=== PATIENT | female | born 1990 | race African-American/Black ===

== ENCOUNTER 2025-04-07 04:43 | Inpatient (IN) | payer BC, OTHER ==
[~2025-04-07] VITALS: Ht 154.9 cm; Wt 97.0 kg
[2025-04-07 05:41] VITALS: PULSE 79; RESP 17; O2SAT 96
--- NOTE | 2025-04-07 06:23 | ED.PDOC ---
HPI (NEURO) HPI Comments 34 y/o F, is BIBA for CC of right-sided weakness. EMS reports, patient is coming from home where she c/o mid/upper back pain with associated numbness following stretching at approximately (0100) this morning (04/07/25). Patient reports, SHx of x4 lumbar disc replacements. Following trauma, patient endorses right sided body weakness and inability to move her right lower leg. At this time patient's speech is clear and facial symmetry is bilaterally equal. Patient denies any trauma, injury, fall, or changes in speech. No other ysmptoms or modifying factors are present at this time. Chief Complaint: Right Sided Weakness Time Seen by MD: 06:23 Reviewed Notes: Nurses Notes, Medications, Allergies Information Source: Patient Mode of Arrival: EMS Severity: Moderate Headache Severity: Moderate, None Timing: Hours Duration: Since onset Prehospital treatment: None Onset: With light exertion Circumstances: Spontaneous Symptoms: Weakness Before: Normal During: Awake After: Normal Mentation Modifying factors: Nothing Associated Signs and Symptoms: Weakness Past Medical History PAST MEDICAL HISTORY: Denies Surgical History (Other): lumbar disc replacement ANSWERING SERVICE AGENT History: Denies all ANSWERING SERVICE AGENT Hx Family History Family History: Unknown Social History Smoker: Non-Smoker Alcohol: Denies ETOH Use Drugs: Denies Drug Use Lives In: Home Constitutional: denies: chills, diaphoresis, fatigue, fever, malaise, sweats, weakness, others EENTM: denies: blurred vision, double vision, ear bleeding, ear discharge, ear drainage, ear pain, ear ringing, eye pain, eye redness, hearing loss, mouth pain, mouth swelling, nasal discharge, nose bleeding, nose congestion, nose pain, photophobia, tearing, throat pain, throat swelling, voice changes, others Respiratory: denies: cough, hemoptysis, orthopnea, SOB at rest, shortness of breath, SOB with excertion, stridor, wheezing, others Cardiovascular: denies: chest pain, dizzy spells, diaphoresis, Dyspnea on exertion, edema, irregular heart beat, left arm pain, lightheadedness, palpitations, PND, syncope, others Gastrointestinal: denies: abdomen distended, abdominal pain, blood streaked bowels, constipated, diarrhea, dysphagia, difficulty swallowing, hematemesis, melena, nausea, poor appetite, poor fluid intake, rectal bleeding, rectal pain, vomiting, others Genitourinary: denies: abnormal vagina bleeding, burning, dyspareunia, dysuria, flank pain, frequency, hematuria, incontinence, pain, , vagina discharge, urgency, others Neurological: reports: right sided weakness; denies: dizziness, fainting, headache, left sided numbness, left sided weakness, numbness, paresthesia, pre-existing deficit, right sided numbness, seizure, speech problems, tingling, tremors, weakness, others Musculoskeletal: reports: back pain; denies: gout, joint pain, joint swelling, muscle pain, muscle stiffness, neck pain, others Integumetry: denies: bruises, change in color, change in hair/nails, dryness, laceration, lesions, lumps, rash, wounds, others Allergic/Immunocompromised: denies: Difficulty Healing, Frequent Infections, Hives, Itching, others Hematologic/Lymphatic: denies: anemia, blood clots, easy bleeding, easy bruising, swollen glands, others Endocrine: denies: excessive hunger, excessive sweating, excessive thirst, excessive urination, flushing, intolerance to cold, intolerance to heat, unexplained weight gain, unexplained weight loss, others Psychiatric: denies: anxiety, bipolar disorder, depression, hopeless, panic disorder, schizophrenia, sleepless, suicidal, others All Other Systems: Reviewed and Negative Physical Exam General Appearance: Moderate Distress HEENT: Normal ENT Inspection, Pharynx Normal, TMs Normal Neck: Full Range of Motion, Non-Tender, Normal, Normal Inspection Respiratory: Chest Non-Tender, Lungs Clear, No Accessory Muscle Use, No Respiratory Distress, Normal Breath Sounds Cardiovascular: No Edema, No JVD, No Murmur, No Gallop, Normal Peripheral Pulses, Regular Rate/Rhythm Breast Exam: Deferred Gastrointestinal: No Organomegaly, Non Tender, No Pulsatile Mass, Normal Bowel Sounds, Soft Genitalia: Deferred Pelvic: Deferred Rectal: Deferred Extremities: No calf tenderness, Normal inspection, Normal range of motion, Non-tender, No pedal edema Musculoskeletal : Apperance: Normal Neurologic: Alert, No Motor Deficits, No Sensory Deficits Cerebellar Function: NOT DONE Reflexes: NOT DONE Skin: Normal Color Peripheral Pulses: 3+ Radial (R), 3+ Radial (L) Lymphatic: No Adenopathy Was a procedure done? Was a procedure done?: No Differential Diagnosis (SZ) Seizure: Psychogenic Seizure, Closed Head Injury, CVA/TIA General Weakness: Dehydration, Electrolyte imbalance, Hypoglycemia, Hypotension X-Ray, Labs, Meds, VS Vital Signs Date Time Temp Pulse Resp B/P (MAP) Pulse Ox O2 Delivery O2 Flow Rate FiO2 04/07/25 11:03 86 17 114/61 (78) 95 04/07/25 10:54 86 17 114/61 04/07/25 10:24 93 19 110/57 04/07/25 09:30 84 18 118/58 (78) 96 04/07/25 07:32 98.5 88 17 124/67 (86) 96 98.5 04/07/25 07:32 88 17 96 Room Air* 0 21 04/07/25 05:41 79 17 96 Room Air* 0 21 04/07/25 05:39 98.1 94 16 106/56 (73) 96 98.1 04/07/25 05:02 96 04/07/25 04:59 97.5 101 17 145/68 98 97.5 Lab Test 04/07/25 10:11 04/07/25 08:00 Range/Units Urine Color Light-yellow Yellow Urine Clarity Clear Clear Urine pH 5.5 5.0-9.0 Urine Specific [place] 1.032 1.001-1.035 Urine Protein Negative Negative Urine Ketones Trace Negative Urine Blood Negative Negative /uL Urine Nitrite Negative Negative Urine Bilirubin Negative Negative Urine Urobilinogen Normal Negative mg/dL Urine Leukocyte Esterase Negative Negative /uL Urine RBC 1 0 - 4 /hpf Urine Microscopic WBC 1 0-5 /HPF Urine Squamous Epithelial Cells Few <5 /hpf Urine Bacteria None seen None Seen /hpf Urine Mucus Few None Seen Urine Glucose Normal Normal mg/dL Urine Test Negative Negative White Blood Count 7.5 4.4-10.8 10^3/uL Red Blood Count 3.97 L 4.0-5.20 10^6/uL Hemoglobin 13.2 12.2-16.2 g/dL Hematocrit 39.1 36.0-46.0 % Mean Corpuscular Volume 98.4 80.0-100.0 fL Mean Corpuscular Hemoglobin 33.1 H 28.0-32.0 pg Mean Corpuscular Hemoglobin Concent 33.7 32.0-36.0 g/dL Red Cell Distribution Width 13.4 11.8-14.3 % Platelet Count 305 140-450 10^3/uL Mean Platelet Volume 6.8 L 6.9-10.8 fL Neutrophils (%) (Auto) 83.2 H 37.0-80.0 % Lymphocytes (%) (Auto) 14.2 10.0-50.0 % Monocytes (%) (Auto) 2.2 0.0-12.0 % Eosinophils (%) (Auto) 0.0 0.0-7.0 % Basophils (%) (Auto) 0.4 0.0-2.0 % Neutrophils # (Auto) 6.2 1.6-8.6 10 ^3/uL Lymphocytes # (Auto) 1.1 0.4-5.4 10 ^3/uL Monocytes # (Auto) 0.2 0-1.3 10 ^3/uL Eosinophils # (Auto) 0 0-0.8 10 ^3/uL Basophils # (Auto) 0 0-0.2 10 ^3/uL Nucleated Red Blood Cells 0.1 % Sodium Level 138 136-145 mmol/L Potassium Level 4.1 3.5-5.1 mmol/L Chloride Level 105 98-107 mmol/L Carbon Dioxide Level 23 20-31 mmol/L Anion Gap 10 5-15 Blood Urea Nitrogen 8 L 9-23 mg/dL Creatinine 0.89 0.550-1.02 mg/dL Glomerular Filtration Rate Calc 86 >90 mL/min BUN/Creatinine Ratio 9.0 L 10.0-20.0 Serum Glucose 138 H 74-106 mg/dL Calcium Level 9.0 8.7-10.4 mg/dL Current Medications Medications (Trade) Dose Ordered Sig/Gabriella Route Start Time Stop Time Status Last Admin Ketorolac Tromethamine (Toradol Injection) 30 mg ONCE ONCE IV 04/07/25 07:00 04/07/25 07:01 DC 04/07/25 07:50 Morphine Sulfate 4 mg ONCE ONCE IV 04/07/25 10:15 04/07/25 10:16 DC 04/07/25 10:24 Ondansetron HCl (Zofran) 4 mg ONCE ONCE IV 04/07/25 10:15 04/07/25 10:16 DC 04/07/25 10:21 Ketorolac Tromethamine (Toradol Injection) 30 mg ONCE ONCE IV 04/07/25 10:45 04/07/25 10:46 DC 04/07/25 10:53 Patient alert. Complaining of back pain. Vitals stable. Answering questions. Had back surgery. Possible degeneration. Continues to have pain. Explained to patient that she will be admitted for pain control. Continue monitoring. [facility] [id number] [place] [id number] Ph: [phone] DIAGNOSTIC IMAGING Diagnostic Imaging Report : [id number] Signed PATIENT: JOSEPH MACK ACCT: [id number] UNIT: [id number] : 1990 LOC: ER ROOM / BED: / AGE / SEX: 34 / F ADM STATUS: REG ER SERVICE [id number] ORDERING PHYSICIAN: PAM RUFF MD PROCEDURE(s): HWOCT - HEAD WITHOUT CONTRAST REASON: RLE weakness ORDER NUMBER(s): [id number], ACCESSION NUMBER(s): [id number] EXAM: CT HEAD WITHOUT CONTRAST INDICATION: RLE weakness TECHNIQUE: CT of the head without intravenous contrast. Radiation Dose : 1. Head: CT Dose: CTDI volume is 64.28 mGy. Dose-length product is 1.71 mGy*cm The dose indicators for CT are the volume Computed Tomography (CT) Dose Index (CTDIvol) and the Dose Length Product (DLP), and are measured in units of mGy and mGy-cm, respectively. These indicators are not patient dose, but values generated from the CT scanner acquisition factors. The report includes radiation exposure data for exposures received during this examination. COMPARISON: None FINDINGS: There is no evidence of acute intracranial hemorrhage, extra-axial collection, mass effect, midline shift, herniation or hydrocephalus. The ventricles, sulci and cisterns are age appropriate. The stevens-white differentiation is intact. The visualized paranasal sinuses and mastoid air cells are clear. The surrounding soft tissues and osseous structures are unremarkable. IMPRESSION: No acute intracranial abnormality. Radiation optimization: All CT scans at this facility use at least one of these dose optimization techniques: automated exposure control mA and/or kV adjustment per patient size (includes targeted exams where dose is matched to clinical indication) or iterative reconstruction. ATED BY: ANUJ TANNER MD DICTATED DATE/TIME: 04/07/25741 SIGNED BY: ANUJ TANNER MD SIGNED DATE/TIME: 04/07/25741 CC: [place] [id number] Ph: [phone] DIAGNOSTIC IMAGING Diagnostic Imaging Report : [id number] Signed PATIENT: JOSEPH MACK ACCT: [id number] UNIT: [id number] : 1990 LOC: ER ROOM / BED: / AGE / SEX: 34 / F ADM STATUS: REG ER SERVICE 1 ORDERING PHYSICIAN: SALLY ROSE MD PROCEDURE(s): CERV2 - CERVICAL SPINE 3V REASON: pain ORDER NUMBER(s): [id number], ACCESSION NUMBER(s): [id number] INDICATION: pain TECHNIQUE: 4 views of the cervical spine were obtained. COMPARISON: None FINDINGS: The cervical spine is visualized from C1-C7. There is loss of the normal cervical lordosis which can be positional. No fractures or subluxations are identified. Multilevel degenerative changes of the spine. Anterior cervical spinal fixation hardware in the mid/ lower cervical spine. Alignment appears unremarkable. Prevertebral soft tissues are within normal limits. IMPRESSION: No acute fracture or subluxation ATED BY: ANUJ TANNER MD DICTATED DATE/TIME: 04/07/25740 SIGNED BY: ANUJ TANNER MD SIGNED DATE/TIME: 04/07/25740 CC: [place] [id number] Ph: [phone] DIAGNOSTIC IMAGING Diagnostic Imaging Report : [id number] Signed PATIENT: JOSEPH MACK ACCT: [id number] UNIT: [id number] : 1990 LOC: ER ROOM / BED: / AGE / SEX: 34 / F ADM STATUS: REG ER SERVICE 1 ORDERING PHYSICIAN: SALLY ROSE MD PROCEDURE(s): LUMB2 - LUMBAR SPINE 3 VIEW REASON: degen ORDER NUMBER(s): [id number], ACCESSION NUMBER(s): [id number] INDICATION: degen TECHNIQUE: Frontal and lateral views of the lumbar spine were obtained. COMPARISON: None FINDINGS: . There are no fractures or subluxations. Vertebral body heights and disc spaces are well maintained. Paravertebral soft tissues are unremarkable. IMPRESSION: 1. Of the visualized spine, there is no evidence for fracture or subluxation. ATED BY: EWELINA SANCHEZ MD DICTATED DATE/TIME: 04/07/25742 SIGNED BY: EWELINA SANCHEZ MD SIGNED DATE/TIME: 04/07/25742 CC: Time of 1ST Reevaluation: 17:37 Reevaluation 1ST: Unchanged Patient Education/Counseling: Diagnosis, Treatment Family Education/Counseling: No Family Present Departure 1 Departure Time of Disposition: 07:23 Impression: Primary Impression: Lumbar back pain Disposition: ADMITTED INPATIENT Admit to: Med Surg Condition: Guarded Critical Care Note Critical Care Time?: No Stability Stability form required: No Heart Score Heart Score: Heart Score Response (Comments) Value History N/A 0 EKG N/A 0 Age N/A 0 Risk Factors N/A 0 Troponin N/A 0 Total 0 I personally scribed for SALLY ROSE MD ([email or web address]) on 04/07/25 at 06:23. Electronically submitted by Niru Matthew ([email or web address] I personally scribed for SALLY ROSE MD ([email or web address]) on 04/07/25 at 07:15. Electronically submitted by Niru Matthew ([email or web address]). I personally scribed for SALLY ROSE MD ([email or web address]) on 04/07/25 at 07:48. Electronically submitted by Niru Matthew ([email or web address]). I personally scribed for SALLY ROSE MD ([email or web address]) on 04/07/25 at 07:49. Electronically submitted by Niru Matthew ([email or web address]). I personally scribed for SALLY ROSE MD ([email or web address]) on 04/07/25 at 07:50. Electronically submitted by Niru Matthew ([email or web address]). SALLY ROSE MD Apr 07, 2025 06:23
[2025-04-07 07:10] VITALS: PULSE 88; RESP 17; O2SAT 96
[2025-04-07 07:32] VITALS: PULSE 88; RESP 17; O2SAT 96
--- NOTE | 2025-04-07 07:44 | DVH ---
INDICATION: pain TECHNIQUE: 4 views of the cervical spine were obtained. COMPARISON: None FINDINGS: The cervical spine is visualized from C1-C7. There is loss of the normal cervical lordosis which can be positional. No fractures or subluxations are identified. Multilevel degenerative changes of the spine. Anterior cervical spinal fixation hardware in the mid/ lower cervical spine. Alignment appears unremarkable. Prevertebral soft tissues are within normal limits. IMPRESSION: No acute fracture or subluxation
--- NOTE | 2025-04-07 07:44 | DVH ---
EXAM: CT HEAD WITHOUT CONTRAST INDICATION: RLE weakness TECHNIQUE: CT of the head without intravenous contrast. Radiation Dose : 1. Head: CT Dose: CTDI volume is 64.28 mGy. Dose-length product is 1.71 mGy*cm The dose indicators for CT are the volume Computed Tomography (CT) Dose Index (CTDIvol) and the Dose Length Product (DLP), and are measured in units of mGy and mGy-cm, respectively. These indicators are not patient dose, but values generated from the CT scanner acquisition factors. The report includes radiation exposure data for exposures received during this examination. COMPARISON: None FINDINGS: There is no evidence of acute intracranial hemorrhage, extra-axial collection, mass effect, midline s hift, herniation or hydrocephalus. The ventricles, sulci and cisterns are age appropriate. The stevens-white differentiation is intact. The visualized paranasal sinuses and mastoid air cells are clear. The surrounding soft tissues and osseous structures are unremarkable. IMPRESSION: No acute intracranial abnormality. Radiation optimization: All CT scans at this facility use at least one of these dose optimization chriss hniques: automated exposure control mA and/or kV adjustment per patient size (includes targeted exam s where dose is matched to clinical indication) or iterative reconstruction.
--- NOTE | 2025-04-07 07:45 | DVH ---
INDICATION: degen TECHNIQUE: Frontal and lateral views of the lumbar spine were obtained. COMPARISON: None FINDINGS: . There are no fractures or subluxations. Vertebral body heights and disc spaces are well m aintained. Paravertebral soft tissues are unremarkable. IMPRESSION: 1. Of the visualized spine, there is no evidence for fracture or subluxation.
[2025-04-07] MEDS: KETOROLAC TROMETH 30 MG/ML 1ML VIAL IV ONE ×2 (07:50→10:53)
[2025-04-07 08:16] LABS: Hematocrit 39.1 % (36.0-46.0); Hemoglobin 13.2 g/dL (12.2-16.2); Mean Corpuscular Hemoglobin 33.1 pg (28.0-32.0); Mean Corpuscular Volume 98.4 fL (80.0-100.0); Nucleated Red Blood Cells % 0.1 %
[2025-04-07 08:21] LABS: Chloride 105 mmol/L (98-107); Potassium 4.1 mmol/L (3.5-5.1); Sodium 138 mmol/L (136-145)
[2025-04-07 08:22] LABS: Anion Gap 10 (5-15); Calcium 9.0 mg/dL (8.7-10.4); Carbon Dioxide 23 mmol/L (20-31)
[2025-04-07 08:27] LABS: BUN/Creatinine Ratio 9.0 (10.0-20.0)
[2025-04-07 08:32] LABS: Blood Urea Nitrogen 8 mg/dL (9-23); Glucose 138 mg/dL (74-106)
[2025-04-07] MEDS: ONDANSETRON HCL 4 MG/2 ML VIAL IV ONE (10:21)
[2025-04-07] MEDS: MORPHINE SULFATE 4 MG/ML SYR/VIAL IV ONE (10:24)
[2025-04-07 10:44] LABS: Urine Protein, UAD Negative (Negative)
[2025-04-07] MEDS ORDERED: MORPHINE SULFATE INJ 2 MG/ml SYRG IV PRN (12:15)
[2025-04-07] MEDS ORDERED: TEMAZEPAM 15 MG CAP PO PRN (12:15)
[2025-04-07] MEDS ORDERED: ONDANSETRON HCL 4 MG/2 ML VIAL IV PRN (12:15)
[2025-04-07] MEDS ORDERED: NITROGLYCERIN 0.4 MG SL TAB SL PRN (12:15)
--- NOTE | 2025-04-07 12:28 | DVHHP2 ---
History of Present Illness Reason for Visit: right side body numbness after a stretch History of Present Illness 34-year-old female with past medical history of hyperlipidemia and prior cervical spine surgery with disc replacement and cervical plating in 2014 presents with acute right-sided numbness, weakness, and intractable pain following a stretching movement. The patient reports that at approximately 1:00 AM today, she was performing a deep arm stretch, moving her upper body side to side, when she suddenly developed burning, full-body numbness and tingling along the entire right side, extending from her neck to her right lower extremity. She reports inability to move or bear weight on her right leg since the onset, along with persistent numbness and tingling in the leg. She retains some sensation in the foot and toes, but has lost motor function. She also endorses right shoulder pain but denies any recent trauma, fall, or direct injury. She has not ex perienced headaches, dizziness, or urinary incontinence. She was able to void using a bedpan and denies fecal incontinence. However, she notes numbness and tingling in the waistline region. The patient is employed as a [employer] and last worked about a week ago. She currently resides with her parents. while In the ED, labs showed CBC and BMP within normal limits, glucose 138. Imaging included lumbar spine X-ray (unremarkable), C5 spine X-ray (negative), and CT brain (negative). She was treated with morphine for pain, and gabapentin and baclofen were initiated. Given her neurological deficits and history of cervical spine hardware, she will be admitted for further evaluation by neurology and orthopedic spine, with neuro checks to be monitored closely. Past Medical History See HPI above Past Surgical History See HPI above Family History Reviewed, non-contributory to the management of this case. Past Social History The patient lives at home, denies smoking, alcohol or illicit drugs abuse. Review of Systems Constitutional: No: Fever, Chills, Sweats, Weakness, Malaise, Other Eyes: No: Pain, Vision change, Conjunctivae inflammation, Eyelid inflammation, Other, Redness ENT: No: Ear pain, Ear discharge, Nose pain, Nose discharge, Nose congestion, Mouth pain, Mouth swelling, Throat pain, Throat swelling, Other Respiratory: Shortness of breath; No: Cough, Dry, SOB with excertion, Wheezing, Hemoptysis, Pleuritic Pain, Sputum, Wheezing, Other Cardiovascular: No: Chest Pain, Palpitations, Orthopnea, Paroxysmal Noc. Dyspnea, Edema, Lt Headedness, Other Gastrointestinal: No: Nausea, Vomiting, Abdominal Pain, Diarrhea, Constipation, Melena, Hematochezia, Other Genitourinary: No Dysuria, No Frequency, No Incontinence, No Hematuria, No Retention, No Other Musculoskeletal: other (Right side body pain and numbness and tingling), neck pain, shoulder pain, leg pain, foot pain Skin: No: Rash, Lesions, Jaundice, Bruising, Other Neurological: Weakness, Numbness; No: Incoordination, Change in speech, Confusion, Seizures, Other Allergies: Coded Allergies: NO KNOWN ALLERGIES (Unverified , 04/07/25) Medications Current Medications Medications Dose Ordered Sig/Gabriella Route Start Time Stop Time Status Last Admin Dose Admin Methocarbamol 500 mg QID PO 04/07/25 18:00 UNV Gabapentin 300 mg TID PO 04/07/25 14:00 UNV Sodium Chloride 1,000 ml @ 120 mls/hr Q8H20M IV 04/07/25 12:15 UNV Temazepam 15 mg QHSP PRN PO 04/07/25 12:15 UNV Ondansetron HCl 4 mg Q4HP PRN IV 04/07/25 12:15 UNV Docusate Sodium 100 mg BIDPRN PRN PO 04/07/25 12:15 UNV Enoxaparin Sodium 40 mg DAILY SC 04/08/25 10:00 UNV Morphine Sulfate 2 mg Q4HPRN PRN IV 04/07/25 12:15 UNV Nitroglycerin 0.4 mg Q5MINP PRN SL 04/07/25 12:15 UNV Exam Vital Signs Vital Signs Date Time Temp Pulse Resp B/P (MAP) Pulse Ox O2 Delivery O2 Flow Rate FiO2 04/07/25 11:03 86 17 114/61 (78) 95 04/07/25 07:32 98.5 98.5 04/07/25 07:32 Room Air* 0 21 General Appearance: Alert, Oriented X3, Cooperative, No acute distress HEENT: Atraumatic, PERRLA, EOMI, Mucous membr. moist/pink Respiratory: Clear to auscultation, Normal air movement Cardiovascular: Regular rate, Normal S1, Normal S2, No murmurs Abdominal: Normal bowel sounds, Soft, No tenderness, No hepatospenomegaly, No masses Extremities: No clubbing, No cyanosis, No edema, Normal pulses, Other (Decreased sensation and touch to right lower extremity patient not able to demonstrate movement to right lower extremity when asking and doing exam) Skin: No rashes, No breakdown, No significant lesion Neuro: Other (Does move bilateral lower extremity without difficulty unable to demonstrate movement to right lower extremity on my exam) Labs/Xrays CT scan of the brain unremarkable X-ray C-spine x-ray L-spine unremarkable I reviewed labs, imaging CT scan abdomen pelvis, EKG and all diagnostic studies on this patient from ED records and the medical chart Labs Test 04/07/25 10:11 04/07/25 08:00 Range/Units Urine Color Light-yellow Yellow Urine Clarity Clear Clear Urine pH 5.5 5.0-9.0 Urine Specific [place] 1.032 1.001-1.035 Urine Protein Negative Negative Urine Ketones Trace Negative Urine Blood Negative Negative /uL Urine Nitrite Negative Negative Urine Bilirubin Negative Negative Urine Urobilinogen Normal Negative mg/dL Urine Leukocyte Esterase Negative Negative /uL Urine RBC 1 0 - 4 /hpf Urine Microscopic WBC 1 0-5 /HPF Urine Squamous Epithelial Cells Few <5 /hpf Urine Bacteria None seen None Seen /hpf Urine Mucus Few None Seen Urine Glucose Normal Normal mg/dL White Blood Count 7.5 4.4-10.8 10^3/uL Red Blood Count 3.97 L 4.0-5.20 10^6/uL Hemoglobin 13.2 12.2-16.2 g/dL Hematocrit 39.1 36.0-46.0 % Mean Corpuscular Volume 98.4 80.0-100.0 fL Mean Corpuscular Hemoglobin 33.1 H 28.0-32.0 pg Mean Corpuscular Hemoglobin Concent 33.7 32.0-36.0 g/dL Red Cell Distribution Width 13.4 11.8-14.3 % Platelet Count 305 140-450 10^3/uL Mean Platelet Volume 6.8 L 6.9-10.8 fL Neutrophils (%) (Auto) 83.2 H 37.0-80.0 % Lymphocytes (%) (Auto) 14.2 10.0-50.0 % Monocytes (%) (Auto) 2.2 0.0-12.0 % Eosinophils (%) (Auto) 0.0 0.0-7.0 % Basophils (%) (Auto) 0.4 0.0-2.0 % Neutrophils # (Auto) 6.2 1.6-8.6 10 ^3/uL Lymphocytes # (Auto) 1.1 0.4-5.4 10 ^3/uL Monocytes # (Auto) 0.2 0-1.3 10 ^3/uL Eosinophils # (Auto) 0 0-0.8 10 ^3/uL Basophils # (Auto) 0 0-0.2 10 ^3/uL Nucleated Red Blood Cells 0.1 % Sodium Level 138 136-145 mmol/L Potassium Level 4.1 3.5-5.1 mmol/L Chloride Level 105 98-107 mmol/L Carbon Dioxide Level 23 20-31 mmol/L Anion Gap 10 5-15 Blood Urea Nitrogen 8 L 9-23 mg/dL Creatinine 0.89 0.550-1.02 mg/dL Glomerular Filtration Rate Calc 86 >90 mL/min BUN/Creatinine Ratio 9.0 L 10.0-20.0 Serum Glucose 138 H 74-106 mg/dL Calcium Level 9.0 8.7-10.4 mg/dL SEPSIS Sepsis Screen Date sepsis recognized/suspect: Apr 07, 2025 Time Sepsis recognized/suspect: 0507 Recent Procedure: No On Antibiotic Therapy: No Respiratory Rate >20: No Heart Rate >90: Yes Temp<36 C (96.8 F) or >38.3 C: No SBP <90 or MAP <65 mmHG: No New Acute Mental Status Change: No Is the patient on CPAP, BIPAP,: No Physician Orders Electrocardigram (04/07/25 05:05) Head Without Contrast (04/07/25 05:09) Cervical Spine 3v (04/07/25 07:02) Lumbar Spine 3 View (04/07/25 07:02) Methocarbamol (Robaxin) (04/07/25 12:15) Methocarbamol (Robaxin) (04/07/25 18:00) Gabapentin Capsule (Neurontin Capsule) (04/07/25 14:00) * Neurology Consult (04/07/25 12:04) Neuro Checks Q2hrs Q2HR (04/07/25 12:04) ConsultdrTanya Bradshaw(Spine) (04/07/25 12:04) Admit (04/07/25 12:04) Allergies (04/07/25 12:04) Code Status (04/07/25 12:04) Sodium Chloride 0.9% (04/07/25 12:15) Oxygen Per Hour (04/07/25 12:04) Temazepam (Restoril) (04/07/25 12:15) Ondansetron Hcl (Zofran) (04/07/25 12:15) Docusate Sodium Capsule (Colace Capsule) (04/07/25 12:15) Enoxaparin Sodium (Lovenox) (04/08/25 10:00) Fall Risk Precautions In Place QSHIFT (04/07/25 12:04) Complete Blood Count (04/08/25 04:00) Comprehensive Metabolic Panel (04/08/25 04:00) Pt Request For Service (04/07/25 12:04) Condition: Stable (04/07/25 12:04) BRP (04/07/25 12:04) Morphine Sulfate Injection (04/07/25 12:15) Sequential Compression Device (04/07/25 ) Nitroglycerin Sublingual (Ntrostat Subli (04/07/25 12:15) Stat Ekg For Chest Pain (04/07/25 12:04) Notify Of Changes From Base (04/07/25 12:04) Upholsterer Apprentice For 24 Hours (04/07/25 12:04) Emergency Dysrhythmia Protocol (04/07/25 12:04) Rhythm Strips Once Every Shift (04/07/25 12:04) Oxygen By Nasal Cannula (04/07/25 12:04) Chest Xray 1 View (04/07/25 12:19) Test, Urine (04/07/25 12:19) Vital Signs Date Time Temp Pulse Resp B/P (MAP) Pulse Ox O2 Delivery O2 Flow Rate FiO2 04/07/25 11:03 86 17 114/61 (78) 95 04/07/25 10:54 86 17 114/61 04/07/25 10:24 93 19 110/57 04/07/25 07:32 98.5 88 17 124/67 (86) 96 98.5 04/07/25 07:32 88 17 96 Room Air* 0 21 04/07/25 05:41 79 17 96 Room Air* 0 21 04/07/25 05:39 98.1 94 16 106/56 (73) 96 98.1 04/07/25 05:02 96 04/07/25 04:59 97.5 101 17 145/68 98 97.5 Laboratory Tests Test 04/07/25 08:00 White Blood Count 7.5 10^3/uL (4.4-10.8) Medications Medications Dose Ordered Sig/Gabriella Route Start Time Stop Time Status Last Admin Dose Admin Ketorolac Tromethamine 30 mg ONCE ONCE IV 04/07/25 07:00 04/07/25 07:01 DC 04/07/25 07:50 30 MG Ketorolac Tromethamine 30 mg ONCE ONCE IV 04/07/25 10:45 04/07/25 10:46 DC 04/07/25 10:53 30 MG Morphine Sulfate 4 mg ONCE ONCE IV 04/07/25 10:15 04/07/25 10:16 DC 04/07/25 10:24 4 MG Ondansetron HCl 4 mg ONCE ONCE IV 04/07/25 10:15 04/07/25 10:16 DC 04/07/25 10:21 4 MG Assessment/Plan Assessment/Plan 34-year-old female with Acute right-sided sensory and motor deficit following cervical stretch movement in patient with prior cervical fusion; admitted for pain control, neurological monitoring, and evaluation by neurology and spine surgery. Acute Right-Sided Paresthesia and Weakness Sudden onset after upper body stretch Right-sided numbness from neck to foot; unable to walk or move right leg No trauma, fall, or incontinence reported Neurology consult for full workup (consider MRI C/T/L spine) Ortho spine consult given prior cervical fusion Continue neuro checks Q2H S/p Disc Replacement (2014) not able to give full history Prior cervical disc replacement C spine X-ray negative in ED Ortho spine to evaluate for possible complication, compression, or neural impingement acute Intractable Pain Severe neck, shoulder, and leg pain Treated with IV morphine in ED Continue pain control: morphine PRN, robaxin and gabapentin scheduled acute Sensory Disturbance, Waistline and Lower Extremity Reports waistline numbness, preserved bladder control Monitor for saddle anesthesia or evolving cauda equina syndrome Reassess for bowel/bladder symptoms regularly chronic problems Hyperlipidemia Continue home meds or resume inpatient as needed Cervical spine disc replacement (2014) FEN / PPx: Fluids: IV hydration Electrolytes: Monitor BMP Nutrition: Regular diet as tolerated DVT Prophylaxis: SCDs or pharmacologic prophylaxis if no contraindication GI Prophylaxis: PPI for stress ulcer prophylaxis due to opioid use DISPOSITION: Admit to medicine for monitoring and evaluation of acute right-sided neurological symptoms following a stretching injury in a patient with prior cervical disc replacement. Neurology and orthopedic spine to consult. Neuro checks every 2 hours. Continue pain control with morphine, baclofen, and gabapentin. Monitor closely for signs of spinal cord compression, progression of deficits, or bowel/bladder involvement. Plan discussed with: Patient My Orders Orders - LESTER BHATT DNP Procedure Category Date Status Time Methocarbamol PHA 04/07/25 Logged (Robaxin) 12:15 Methocarbamol PHA 04/07/25 Logged (Robaxin) 18:00 Gabapentin Capsule PHA 04/07/25 Logged (Neurontin Capsule) 14:00 * Neurology Consult CONS 04/07/25 Transmitted 12:04 Neuro Checks Q2hrs KIAN 04/07/25 In Process 12:04 ConsultdrTanya Melgoza CONS 04/07/25 Transmitted [place](Spine) 12:04 Admit ADMIT 04/07/25 Transmitted 12:04 Allergies KIAN 04/07/25 In Process 12:04 Code Status CODE 04/07/25 Transmitted 12:04 Sodium Chloride 0.9% PHA 04/07/25 Logged 12:15 Oxygen Per Hour RT 04/07/25 Transmitted 12:04 Temazepam (Restoril) PHA 04/07/25 Logged 12:15 Ondansetron Hcl PHA 04/07/25 Logged (Zofran) 12:15 Docusate Sodium PHA 04/07/25 Logged Capsule (Colace 12:15 Enoxaparin Sodium PHA 04/08/25 Logged (Lovenox) 10:00 Fall Risk Precautions KIAN 04/07/[address] 12:04 Complete Blood Count LAB 04/08/25 Verified 04:00 Comprehensive LAB 04/08/25 Verified Metabolic Panel 04:00 Pt Request For Service PT 04/07/25 Logged 12:04 Condition: Stable KIAN 04/07/25 In Process 12:04 BRP KIAN 04/07/25 In Process 12:04 Morphine Sulfate PHA 04/07/25 Logged Injection 12:15 Sequential KIAN 04/07/25 In Process Compression Device Nitroglycerin PHA 04/07/25 Logged Sublingual (Ntrostat 12:15 Stat Ekg For Chest KIAN 04/07/25 In Process Pain 12:04 Notify Md Of Changes KIAN 04/07/25 In Process From Base 12:04 Upholsterer Apprentice For KIAN 04/07/25 In Process 24 Hours 12:04 Emergency Dysrhythmia [facility] 04/07/25 In Process Protocol 12:04 Rhythm Strips Once KIAN 04/07/25 In Process Every Shift 12:04 Oxygen By Nasal RT 04/07/25 Transmitted Cannula 12:04 Chest Xray 1 View XY 04/07/25 Verified 12:19 Test, Urine LAB 04/07/25 Verified 12:19 Date of Service: Apr 07, 2025 Billing Provider: LESTER BHATT DNP Common Visit Codes: [id number] INP/OBS CARE (HIGH) LESTER BHATT DNP Apr 07, 2025 12:28
[2025-04-07] MEDS: METHOCARBAMOL 500 MG TAB PO ONE (12:42)
[2025-04-07] MEDS: SODIUM CHLORIDE 0.9% 1,000 ML IV SCH (12:42)
--- NOTE | 2025-04-07 13:01 | DVH ---
XY CHEST XRAY 1 VIEW, HISTORY: sob COMPARISON: CR CHEST 1 VIEW on DOS: 11/21/23 CR CHEST 1 VIEW on DOS: 11/21/23 TECHNICAL DATA: 1 view of the chest was obtained. FINDINGS: Lines and tubes: None Cardiomediastinal silhouette: prominent Pulmonary vasculature: prominent Lung expansion: normal Lung airspace: normal Lung interstitium: normal Pleura: normal Pneumothorax: no Bones: Unremarkable Other: no IMPRESSION: No acute intrathoracic abnormality. Cardiomegaly with pulmonary vascular congestion.
--- NOTE | 2025-04-07 13:49 | BSKYNEURO ---
[address] Neuro Note # Demographics Consult Type: General Neurology Patient Location: Emergency Room First Name: JOSEPH Last Name: MARTINA Date of : 1990 Age: 34 Gender: Female Facility: [facility] Time of Initial Page (): 04/07/2025 12:50 First Contact with Site (): 04/07/2025 12:50 # HPI History: 34 y/o woke up in her sleep, then had numbness R arm to R toes at 4a. # Scores Time of exam and NIHSS (): 04/07/2025 13:41 Level of Consciousness 1a: [0] = Alert; keenly responsive LOC Questions 1b: [0] = Answers both questions correctly LOC Commands 1c: [0] = Performs both tasks correctly Best Gaze 2: [0] = Normal Visual 3: [0] = No visual loss Facial Palsy 4: [0] = Normal symmetrical movements Motor Arm Left 5a: [0] = No drift Motor Arm Right 5b: [0] = No drift Motor Leg Left 6a: [0] = No drift Motor Leg Right 6b: [4] = No movement Limb Ataxia 7: [0] = Absent Sensory 8: [2] = Severe to total sensory loss Best Language 9: [0] = No aphasia Dysarthria 10: [0] = Normal Extinction and Inattention 11: [0] = No abnormality NIHSS Total: 6 # Assessment Impression: Acute R sided numbness/pain. Rule out cervical cord pathology or demyelination. Not a typical stroke syndrome but should get MRI brain to # Plan Thrombolytic/Intervention: NOT IV Thrombolysis or IA Intervention candidate Thrombolytic Exclusion: > 4.5 hours Intraarterial Exclusion: no sign sof LVO Imaging: (urgency: routine): - MRI Brain with AND without contrast - MRI C spine - MRI T spine all with contrast Other: - If patient has any neurological deterioration please call me back immediately - I have discussed my recommendations with the referring provider Disposition: continue admission # Logistics Attestation of consult completion: The patient is located at: [facility]. Facility staff participated in the visit. I performed this telemedicine visit from my offsite office utilizing interactive 2 way audio and visual telecommunication technology at the request of the onsite emergency room provider. Consent: Verbal consent was obtained from the patient and/or family for this encounter. Total time spent in telemedicine encounter: I spent 15 minutes reviewing clinical data and/or imaging, obtaining history, examining the patient, communicating with the onsite care team, and in preparation of this report. # Demographics First Name: JOSEPH Last Name: MACK Facility: [facility] Yes ISRAEL TURNER MD Apr 07, 2025 13:49
[2025-04-07] MEDS: GABAPENTIN 300 MG CAP PO SCH (14:06)
--- NOTE | 2025-04-07 17:48 | DVHINCON2 ---
Consultation - Surgical Date Seen: Apr 07, 2025 Referring Physician Referring Physician Attending Doctor: Mony Post [facility] Reason for Visit: right side body numbness after a stretch History of Present Illness 34-year-old female with past medical history of hyperlipidemia and prior cervical spine surgery with disc replacement and cervical plating in 2014 presents with acute right-sided numbness, weakness, and intractable pain following a stretching movement. The patient reports that at approximately 1:00 AM today, she was performing a deep arm stretch, moving her upper body side to side, when she suddenly developed burning, full-body numbness and tingling along the entire right side, extending from her neck to her right lower extremity. She reports inability to move or bear weight on her right leg since the onset, along with persistent numbness and tingling in the leg. She retains some sensation in the foot and toes, but has lost motor function. She also endorses right shoulder pain but denies any recent trauma, fall, or direct injury. She has not experienced headaches, dizziness, or urinary incontinence. She was able to void using a bedpan and denies fecal incontinence. However, she notes numbness and tingling in the waistline region. The patient is employed as a [employer] and last worked about a week ago. She currently resides with her parents. while In the ED, labs showed CBC and BMP within normal limits, glucose 138. Imaging included lumbar spine X-ray (unremarkable), C5 spine X-ray (negative), and CT brain (negative). She was treated with morphine for pain, and gabapentin and baclofen were initiated. Given her neurological deficits and history of cervical spine hardware, she will be admitted for further evaluation by neurology and orthopedic spine, with neuro checks to be monitored closely. Past Medical History See HPI above Past Surgical History See HPI above Family History Reviewed, non-contributory to the management of this case. Past Social History The patient lives at home, denies smoking, alcohol or illicit drugs abuse. Reason for Consultation Reason for Visit: right side body numbness after a stretch History of Present Illness History of Present Illness History of Present Illness 34-year-old female with past medical history of hyperlipidemia and prior cervical spine surgery with disc replacement and cervical plating in 2014 p resents with acute right-sided numbness, weakness, and intractable pain following a stretching movement. The patient reports that at approximately 1:00 AM today, she was performing a deep arm stretch, moving her upper body side to side, when she suddenly developed burning, full-body numbness and tingling along the entire right side, extending from her neck to her right lower extremity. She reports inability to move or bear weight on her right leg since the onset, along with persistent numbness and tingling in the leg. She retains some sensation in the foot and toes, but has lost motor function. She also endorses right shoulder pain but denies any recent trauma, fall, or direct injury. She has not experienced headaches, dizziness, or urinary incontinence. She was able to void using a bedpan and denies fecal incontinence. However, she notes numbness and tingling in the waistline region. The patient is employed as a [employer] and last worked about a week ago. She currently resides with her parents. while In the ED, labs showed CBC and BMP within normal limits, glucose 138. Imaging included lumbar spine X-ray (unremarkable), C5 spine X-ray (negative), and CT brain (negative). She was treated with morphine for pain, and gabapentin and baclofen were initiated. Given her neurological deficits and history of cervical spine hardware, she will be admitted for further evaluation by neurology and orthop edic spine, with neuro checks to be monitored closely. Past Medical/Surgical History Past Medical/Surgical History Past Medical History See HPI above Past Surgical History See HPI above Family and Social History Family and Social History Family History Reviewed, non-contributory to the management of this case. Past Social History The patient lives at home, denies smoking, alcohol or illicit drugs abuse. Allergies and medications Allergies: Coded Allergies: NO KNOWN ALLERGIES (Unverified , 04/07/25) Home Meds No Active Prescriptions or Reported Meds Review of systems Review of Systems: NEURO:Normal ( prior cervical spine surgery with disc replacement and cervical plating in 2015 presents with acute right-sided numbness, weakness, and intractable pain following a stretching movement) Examination Vital signs Imaging: ORDERING PHYSICIAN: MOO PRITCHARD PHARMACOGNOSIST PROCEDURE(s): MNE - CERVICAL WO CONTRAST REASON: Evaluation of existing cervical hardware with neurologic sym ORDER NUMBER(s): [id number], ACCESSION NUMBER(s): [id number] PROCEDURE: MRI cervical spine without contrast. INDICATION: Evaluation of existing cervical hardware with neurologic sym. COMPARISON: XY CERVICAL SPINE 3V on DOS: 04/07/25 TECHNIQUE: MRI of the cervical spine without intravenous contrast utilizing multiplanar, multisequence technique. FINDINGS: The alignment of the cervical spine vertebral bodies is preserved. There is reversal of the cervical lordosis. There is anterior cervical discectomy and f usion at C4-C6. The vertebral body heights are maintained. Artifact from the cervical spine hardware limits evaluation. There is intervertebral disc space narrowing at C2-C3 and C6-C7. The bone marrow signal is homogenous and unremarkable. There is multifocal spinal cord narrowing which is most severe at C6-C7, described in more detail at each level below. There is focal T2 hyperin tensity is noted in the cervical spinal cord at the C5-C6 level which may reflect edema or myelomalacia. Posterior fossa structures are unremarkable. No cerebellar tonsillar herniation. Paraspinal muscles are unremarkable. No prevertebral fluid collection. At the C2-C3 level, there is posterior disc osteophyte complex. There is no significant spinal stenosis. Mild left neural foraminal stenosis. The right neural foramina is patent. At the C3-C4 level, there is posterior disc osteophyte complex. There is moderate spinal stenosis. There is flattening of the cervical spinal cord due to posterior disc osteophyte complex. No cord signal change. Moderate right and mild to moderate left neural foraminal stenosis is present. At the C4-C5 level, there is postsurgical change. There is moderate spinal stenosis due to posterior osteophyte. There is flattening of the cervical spinal cord at this level. There is mild right and moderate left neural foraminal stenosis. At the C5-C6 level, there is postsurgical change. Moderate spinal stenosis due to posterior osteophytes. There is mild right and severe left neural foraminal stenosis. At the C6-C7 level, there is posterior disc extrusion which extends caudally along the posterior C7 vertebral body. There is moderate spinal stenosis. Moderate spinal cord compression at this level without cord signal change. Moderate to severe right and severe left neural foraminal stenosis is noted. At the C7-T1 level, there is posterior central disc protrusion. There is mild spinal stenosis. No significant right neural foraminal stenosis. Severe left neural foraminal stenosis. Other: None. IMPRESSION: Multilevel postsurgical changes of the cervical spine. Multilevel spinal stenosis and neural foraminal stenosis as described in detail above. Focal T2 hyperintensity in the cervical spinal cord at the C5-C6 level which may reflect edema or myelomalacia. 1. Anterior cervical discectomy and fusion at C4-C6. There some artifact from the hardware which limits evaluation. 2. Multilevel degenerative changes in the cervical spine. In particular, there is moderate spinal stenosis at C6-C7 due to disc extrusion which causes moderate compression of the cervical spinal cord. No cord signal change. There is moderate to severe right and severe left neural foraminal stenosis at C6-C7. Additional moderate spinal stenosis present at C4-C5 and C5-C6. 3. Focal T2 hyperintensity in the cervical spinal cord at the C5-C6 level which may reflect edema or myelomalacia ORDERING PHYSICIAN: MOO PRITCHARD NP PROCEDURE(s): MSL - LUMBAR SPINE WO CONTRAST REASON: concern for lumbar disc ORDER NUMBER(s): [id number], ACCESSION NUMBER(s): [id number] PROCEDURE: MRI lumbar spine without contrast. INDICATION: Concern for lumbar disc COMPARISON: Radiographs of the lumbar spine dated 04/07/2025. TECHNIQUE: MRI lumbar spine without intravenous contrast utilizing multiplanar, multisequence technique. FINDINGS: The alignment of the lumbar spine vertebral bodies is preserved. Bone marrow signal is homogenous and unremarkable. The vertebral body heights are main tained. There is intervertebral disc space narrowing and desiccation at L3-L4 and L4-L5. The conus medullaris is normal in signal characteristics and terminates at the T12-L1 level. Paraspinal muscles are unremarkable. At the T12-L1 level, there is no evidence of central spinal canal or neuroforaminal stenosis. At the L1-L2 level, there is no evidence of central spinal canal or neuroforaminal stenosis. At the L2-L3 level, there is no evidence of central spinal canal or neuroforaminal stenosis. At the L3-L4 level, there is no evidence of central spinal canal or neuroforaminal stenosis. At the L4-L5 level, there is broad-based posterior disc bulge. There is mild spinal stenosis. There is mild bilateral neural foraminal stenosis. At the L5-S1 level, there is no evidence of central spinal canal or neuroforaminal stenosis. Other: None. IMPRESSION: 1. Broad-based posterior disc bulge at L4-L5 with mild spinal stenosis and mild bilateral neural foraminal stenosis. No evidence of disc herniation. ORDERING PHYSICIAN: SALLY ROSE MD PROCEDURE(s): CERV2 - CERVICAL SPINE 3V REASON: pain ORDER NUMBER(s): [id number], ACCESSION NUMBER(s): [id number] INDICATION: pain TECHNIQUE: 4 views of the cervical spine were obtained. COMPARISON: None FINDINGS: The cervical spine is visualized from C1-C7. There is loss of the normal cervical lordosis which can be positional. No fractures or subluxations are identified. Multilevel degenerative changes of the spine. Anterior cervical spinal fixation hardware in the mid/ lower cervical spine. Alignment appears unremarkable. Prevertebral soft tissues are within normal limits. IMPRESSION: No acute fracture or subluxation RING PHYSICIAN: SALLY ROSE MD PROCEDURE(s): LUMB2 - LUMBAR SPINE 3 VIEW REASON: degen ORDER NUMBER(s): [id number], ACCESSION NUMBER(s): [id number] INDICATION: degen TECHNIQUE: Frontal and lateral views of the lumbar spine were obtained. COMPARISON: None FINDINGS: . There are no fractures or subluxations. Vertebral body heights and disc spaces are well maintained. Paravertebral soft tissues are unremarkable. IMPRESSION: 1. Of the visualized spine, there is no evidence for fracture or subluxation. Vital Signs Date Time Temp Pulse Resp B/P (MAP) Pulse Ox O2 Delivery O2 Flow Rate FiO2 04/07/25 14:30 89 17 122/51 (74) 96 04/07/25 07:32 98.5 98.5 04/07/25 07:32 Room Air* 0 21 Medications Current Medications Medications (Trade) Dose Ordered Sig/Gabriella Route PRN Reason Start Time Stop Time Status Last Admin Methocarbamol (Robaxin) 500 mg QID PO 04/07/25 18:00 Gabapentin (Neurontin Capsule) 300 mg TID PO 04/07/25 14:00 04/07/25 14:06 Sodium Chloride 1,000 ml @ 120 mls/hr Q8H20M IV 04/07/25 12:15 04/07/25 12:42 Temazepam (Restoril) 15 mg QHSP PRN PO FOR INSOMNIA 04/07/25 12:15 Ondansetron HCl (Zofran) 4 mg Q4HP PRN IV NAUSEA / VOMITING 04/07/25 12:15 Docusate Sodium (Colace Capsule) 100 mg BIDPRN PRN PO FOR CONSTIPATION 04/07/25 12:15 Enoxaparin Sodium (Lovenox) 40 mg DAILY SC 04/08/25 10:00 Morphine Sulfate 2 mg Q4HPRN PRN IV SEVERE PAIN (7-10 PAIN SCALE) 04/07/25 12:15 Nitroglycerin (Ntrostat Sublingual) 0.4 mg Q5MINP PRN SL FOR CHEST PAIN 04/07/25 12:15 Laboratory Labs Test 04/07/25 10:11 04/07/25 08:00 Range/Units Urine Color Light-yellow Yellow Urine Clarity Clear Clear Urine pH 5.5 5.0-9.0 Urine Specific [place] 1.032 1.001-1.035 Urine Protein Negative Negative Urine Ketones Trace Negative Urine Blood Negative Negative /uL Urine Nitrite Negative Negative Urine Bilirubin Negative Negative Urine Urobilinogen Normal Negative mg/dL Urine Leukocyte Esterase Negative Negative /uL Urine RBC 1 0 - 4 /hpf Urine Microscopic WBC 1 0-5 /HPF Urine Squamous Epithelial Cells Few <5 /hpf Urine Bacteria None seen None Seen /hpf Urine Mucus Few None Seen Urine Glucose Normal Normal mg/dL Urine Test Negative Negative White Blood Count 7.5 4.4-10.8 10^3/uL Red Blood Count 3.97 L 4.0-5.20 10^6/uL Hemoglobin 13.2 12.2-16.2 g/dL Hematocrit 39.1 36.0-46.0 % Mean Corpuscular Volume 98.4 80.0-100.0 fL Mean Corpuscular Hemoglobin 33.1 H 28.0-32.0 pg Mean Corpuscular Hemoglobin Concent 33.7 32.0-36.0 g/dL Red Cell Distribution Width 13.4 11.8-14.3 % Platelet Count 305 140-450 10^3/uL Mean Platelet Volume 6.8 L 6.9-10.8 fL Neutrophils (%) (Auto) 83.2 H 37.0-80.0 % Lymphocytes (%) (Auto) 14.2 10.0-50.0 % Monocytes (%) (Auto) 2.2 0.0-12.0 % Eosinophils (%) (Auto) 0.0 0.0-7.0 % Basophils (%) (Auto) 0.4 0.0-2.0 % Neutrophils # (Auto) 6.2 1.6-8.6 10 ^3/uL Lymphocytes # (Auto) 1.1 0.4-5.4 10 ^3/uL Monocytes # (Auto) 0.2 0-1.3 10 ^3/uL Eosinophils # (Auto) 0 0-0.8 10 ^3/uL Basophils # (Auto) 0 0-0.2 10 ^3/uL Nucleated Red Blood Cells 0.1 % Sodium Level 138 136-145 mmol/L Potassium Level 4.1 3.5-5.1 mmol/L Chloride Level 105 98-107 mmol/L Carbon Dioxide Level 23 20-31 mmol/L Anion Gap 10 5-15 Blood Urea Nitrogen 8 L 9-23 mg/dL Creatinine 0.89 0.550-1.02 mg/dL Glomerular Filtration Rate Calc 86 >90 mL/min BUN/Creatinine Ratio 9.0 L 10.0-20.0 Serum Glucose 138 H 74-106 mg/dL Calcium Level 9.0 8.7-10.4 mg/dL Examination: GENERAL:Normal, HEENT:Normal, NECK:Normal, MSK:Normal, NEUR O:Abnormal (pain to right hip, sensation intact RLE 3/5 motor strength. RUE strength has returned. eval 04/08 slight improvment to right leg.) Problem List/Assessment/Plan Problems: (1) Lumbar back pain Assessment and Plan Multilevel degenerative changes of the cervical spine. Anterior cervical spinal fixation hardware in the mid/ lower cervical spine. Alignment appears unremarkable. MRI noncontrast of the cervical spine, lumbar spine without contrast addendum 04/08 MRI results Cervical: Multilevel degenerative changes in the cervical spine. In particular, there is moderate spinal stenosis at C6-C7 due to disc extrusion which causes moderate compression of the cervical spinal cord. No cord signal change. There is moderate to severe right and severe left neural foraminal stenosis at C6-C7. Additional moderate spinal stenosis present at C4-C5 and C5-C6. Focal T2 hyperintensity in the cervical spinal cord at the C5-C6 level which may reflect edema or myelomalacia. Lumbar: Broad-based posterior disc bulge at L4-L5 with mild spinal stenosis and mild bilateral neural foraminal stenosis. No evidence of disc herniation. Patient's me have outpatient follow up regarding this lumbar finding, physical therapy, pain management and conservative management recommended. Continue care and support per admitting team's discretion Physical therapy evaluation, treatment recommendations and safe discharge planning recommendations Effective pain management including muscle relaxers if the patient is complaining of muscle spasms Discussed treatment options with the patient ranging from conservative management to surgical intervention,Decadron 10mg IV x 1 ordered. 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 Myopathy is a relentless clinical finding that does not spontaneously improve. The underlying treatment is to remove the offending stimulus, which in this case is cord compression from the large herniated disc. If the patient decides to have surgery she will need cardiovascular clearance, we have time on pending the OR schedule. Call with questions Jacques Pritchard [facility] Orthopaedic Spine Surgery nurse practitioner For Dr Brody Campoverde Patient was examined, chart reviewed, labs evaluated, and diagnostic studies and findings analyzed. Case was discussed with Dr. Abad Campoverde who formulated the plan of care. This medical document was created using an electronic medical record system with [employer] dictation system. Although this document has been carefully reviewed, there might still be some phonetic and typographical errors. These areas are purely typographical due to imperfections of the software programs, and do not reflect any compromise in the patient's medical care. Plan discussed with Plan discussed with: Patient, Other (father) Visit Coding Surgery Date of Service if different f: Apr 07, 2025 Billing Provider: MOO PRITCHARD NP Surgery Visit Codes: 73406 - INP CONSULT <55 MIN MOO PRITCHARD NP Apr 07, 2025 17:48
[2025-04-07] MEDS: METHOCARBAMOL 500 MG TAB PO SCH (18:13)
[2025-04-08 01:00] VITALS: BP 105/57; PULSE 84; RESP 19; TEMP 98; O2SAT 97
[2025-04-08 05:00] VITALS: BP 114/58; PULSE 79; RESP 18; TEMP 98.4; O2SAT 94
[2025-04-08 06:24] LABS: Alanine Aminotransferase 15 U/L (7-40); Albumin 4.0 g/dL (3.2-4.8); Alkaline Phosphatase 63 U/L (46-116); Anion Gap 8 (5-15); BUN/Creatinine Ratio 8.8 (10.0-20.0); Calcium 8.7 mg/dL (8.7-10.4); Carbon Dioxide 24 mmol/L (20-31); Chloride 106 mmol/L (98-107); Potassium 4.1 mmol/L (3.5-5.1); Sodium 138 mmol/L (136-145); Total Protein 7.2 g/dL (5.7-8.2)
[2025-04-08 06:25] LABS: Bilirubin, Total 0.9 mg/dL (0.2-1.0)
[2025-04-08 06:27] LABS: Blood Urea Nitrogen 7 mg/dL (9-23); Glucose 140 mg/dL (74-106)
[2025-04-08 06:28] LABS: Hematocrit 37.6 % (36.0-46.0); Hemoglobin 13.0 g/dL (12.2-16.2); Mean Corpuscular Hemoglobin 33.3 pg (28.0-32.0); Mean Corpuscular Volume 96.3 fL (80.0-100.0); Nucleated Red Blood Cells % 0.1 %
[2025-04-08 09:00] VITALS: BP 115/67; PULSE 78; RESP 18; TEMP 99.5; O2SAT 95
[2025-04-08] MEDS: ENOXAPARIN SOD 40 MG/0.4 ML SYRINGE SC SCH (09:00)
--- NOTE | 2025-04-08 11:33 | DVH ---
PROCEDURE: MRI lumbar spine without contrast. INDICATION: Concern for lumbar disc COMPARISON: Radiographs of the lumbar spine dated 04/07/2025. TECHNIQUE: MRI lumbar spine without intravenous contrast utilizing multiplanar, multisequence techni que. FINDINGS: The alignment of the lumbar spine vertebral bodies is preserved. Bone marrow signal is homogenous and unremarkable. The vertebral body heights are maintained. There is intervertebral disc space narrowin g and desiccation at L3-L4 and L4-L5. The conus medullaris is normal in signal characteristics and te rminates at the T12-L1 level. Paraspinal muscles are unremarkable. At the T12-L1 level, there is no evidence of central spinal canal or neuroforaminal stenosis. At the L1-L2 level, there is no evidence of central spinal canal or neuroforaminal stenosis. At the L2-L3 level, there is no evidence of central spinal canal or neuroforaminal stenosis. At the L3-L4 level, there is no evidence of central spinal canal or neuroforaminal stenosis. At the L4-L5 level, there is broad-based posterior disc bulge. There is mild spinal stenosis. There is mild bilateral neural foraminal stenosis. At the L5-S1 level, there is no evidence of central spinal canal or neuroforaminal stenosis. Other: None. IMPRESSION: 1. Broad-based posterior disc bulge at L4-L5 with mild spinal stenosis and mild bilateral neural fora ciara stenosis. No evidence of disc herniation.
--- NOTE | 2025-04-08 12:05 | DVH ---
PROCEDURE: MRI cervical spine without contrast. INDICATION: Evaluation of existing cervical hardware with neurologic sym. COMPARISON: XY CERVICAL SPINE 3V on DOS: 04/07/25 TECHNIQUE: MRI of the cervical spine without intravenous contrast utilizing multiplanar, multisequen ce technique. FINDINGS: The alignment of the cervical spine vertebral bodies is preserved. There is reversal of the cervical lordosis. There is anterior cervical discectomy and fusion at C4-C6. The vertebral body heights are maintained. Artifact from the cervical spine hardware limits evaluation. There is intervertebral disc space narrowing at C2-C3 and C6-C7. The bone marrow signal is homogenous and unremarkable. There is multifocal spinal cord narrowing which is most severe at C6-C7, described in more detail at each leve l below. There is focal T2 hyperintensity is noted in the cervical spinal cord at the C5-C6 level whi ch may reflect edema or myelomalacia. Posterior fossa structures are unremarkable. No cerebellar tons illar herniation. Paraspinal muscles are unremarkable. No prevertebral fluid collection. At the C2-C3 level, there is posterior disc osteophyte complex. There is no significant spinal steno sis. Mild left neural foraminal stenosis. The right neural foramina is patent. At the C3-C4 level, there is posterior disc osteophyte complex. There is moderate spinal stenosis. T here is flattening of the cervical spinal cord due to posterior disc osteophyte complex. No cord sign al change. Moderate right and mild to moderate left neural foraminal stenosis is present. At the C4-C5 level, there is postsurgical change. There is moderate spinal stenosis due to posterior osteophyte. There is flattening of the cervical spinal cord at this level. There is mild right and mo derate left neural foraminal stenosis. At the C5-C6 level, there is postsurgical change. Moderate spinal stenosis due to posterior osteophy siobhan. There is mild right and severe left neural foraminal stenosis. At the C6-C7 level, there is posterior disc extrusion which extends caudally along the posterior C7 v ertebral body. There is moderate spinal stenosis. Moderate spinal cord compression at this level wit hout cord signal change. Moderate to severe right and severe left neural foraminal stenosis is noted. At the C7-T1 level, there is posterior central disc protrusion. There is mild spinal stenosis. No s ignificant right neural foraminal stenosis. Severe left neural foraminal stenosis. Other: None. IMPRESSION: Multilevel postsurgical changes of the cervical spine. Multilevel spinal stenosis and neural foramina l stenosis as described in detail above. Focal T2 hyperintensity in the cervical spinal cord at the C 5-C6 level which may reflect edema or myelomalacia. 1. Anterior cervical discectomy and fusion at C4-C6. There some artifact from the hardware which limi ts evaluation. 2. Multilevel degenerative changes in the cervical spine. In particular, there is moderate spinal shasha nosis at C6-C7 due to disc extrusion which causes moderate compression of the cervical spinal cord. N o cord signal change. There is moderate to severe right and severe left neural foraminal stenosis at C6-C7. Additional moderate spinal stenosis present at C4-C5 and C5-C6. 3. Focal T2 hyperintensity in the cervical spinal cord at the C5-C6 level which may reflect edema or myelomalacia.
--- NOTE | 2025-04-08 12:56 | DVHPN2 ---
Subjective Continues to have tingling and weakness in right lower extremity. Reviewed: Care Plan, H&P, Labs, Medications Changes from previous H/P or p: No Changes Eyes: No Pain, No Vision change, No Conjunctivae inflammation, No Eyelid inflammation, No Other, No Redness ENT: No Ear pain, No Ear discharge, No Nose pain, No Nose discharge, No Nose congestion, No Mouth pain, No Mouth swelling, No Throat pain, No Throat swelling, No Other Cardiovascular: No Chest Pain, No Palpitations, No Orthopnea, No Paroxysmal Noc. Dyspnea, No Edema, No Lt Headedness, No Other Respiratory: No Cough, No Dry; Shortness of breath; No SOB with excertion, No Wheezing, No Hemoptysis, No Pleuritic Pain, No Sputum, No Other Gastrointestinal: No Nausea, No Vomiting, No Abdominal Pain, No Diarrhea, No Constipation, No Melena, No Hematochezia, No Other Genitourinary: No Dysuria, No Frequency, No Incontinence, No Hematuria, No Retention, No Other Musculoskeletal: other (Right side body pain and numbness and tingling), neck pain, shoulder pain, leg pain, foot pain Skin: No Rash, No Lesions, No Jaundice, No Bruising, No Other Objective Vitals Vital Signs Date Time Temp Pulse Resp B/P (MAP) Pulse Ox O2 Delivery O2 Flow Rate FiO2 04/08/25 09:00 99.5 78 18 115/67 (83) 95 99.5 04/07/25 22:14 Room Air* 0 21 Intake/Output Intake and Output 04/08/25 07:00 Intake Total 1070 ml Balance 1070 ml Intake Oral 350 ml IV Total 720 ml # Voids 1 General Appearance: Alert, Oriented X3, Cooperative HEENT: Atraumatic, PERRLA Lungs: Clear to auscultation, Normal air movement Cardiovascular: Normal S1, Normal S2 Genitourinary: No Apparent Abnormalities Musculoskeletal: Weak motor strength RLE Neuro: Normal gait, Normal speech Skin: Dry, Intact Psych/Mental Status: Mental status NL, Mood NL Medications Current Medications Medications Dose Ordered Sig/Gabriella Route Start Time Stop Time Status Last Admin Dose Admin Methocarbamol 500 mg QID PO 04/07/25 18:00 04/08/25 12:28 500 MG Gabapentin 300 mg TID PO 04/07/25 14:00 04/08/25 05:41 300 MG Temazepam 15 mg QHSP PRN PO 04/07/25 12:15 Ondansetron HCl 4 mg Q4HP PRN IV 04/07/25 12:15 Docusate Sodium 100 mg BIDPRN PRN PO 04/07/25 12:15 Enoxaparin Sodium 40 mg DAILY SC 04/08/25 10:00 04/08/25 09:00 40 MG Morphine Sulfate 2 mg Q4HPRN PRN IV 04/07/25 12:15 Nitroglycerin 0.4 mg Q5MINP PRN SL 04/07/25 12:15 Laboratory Results Laboratory Tests 04/08/25 05:09 Chemistry Test 04/08/25 05:09 Albumin 4.0 g/dL (3.2-4.8) Calcium Level 8.7 mg/dL (8.7-10.4) Total Protein 7.2 g/dL (5.7-8.2) LFT Test 04/08/25 05:09 Alanine Aminotransferase (ALT) 15 U/L (7-40) Alkaline Phosphatase 63 U/L (46-116) Aspartate Amino Transferase (AST) 11 U/L (13-40) L Total Bilirubin 0.9 mg/dL (0.2-1.0) Urinalysis Test 04/07/25 10:11 Urine Color Light-yellow (Yellow) Urine Clarity Clear (Clear) Urine pH 5.5 (5.0-9.0) Urine Specific [place] 1.032 (1.001-1.035) Urine Protein Negative (Negative) Urine Ketones Trace (Negative) Urine Blood Negative /uL (Negative) Urine Nitrite Negative (Negative) Urine Bilirubin Negative (Negative) Urine Urobilinogen Normal mg/dL (Negative) Urine Leukocyte Esterase Negative /uL (Negative) Urine RBC 1 /hpf (0 - 4) Urine Microscopic WBC 1 /HPF (0-5) Urine Squamous Epithelial Cells Few /hpf (<5) Urine Bacteria None seen /hpf (None Seen) Urine Mucus Few (None Seen) Urine Glucose Normal mg/dL (Normal) Urine Test Negative (Negative) Labs and/or images reviewed: Labs reviewed by me, Image(s) reviewed by me Assessment/Plan Assessment/Plan Impression: -L4/L5 posterior disc bulge -right lower extremity paresthesia -obesity -history of cervical stenosis -hypercholesterolemia Plan: -spine surgery consultation: Recommendations appreciated after interpreting MRI -pain management -physical therapy Total time spent with patient discussing and formulating plan of care: 35 minutes. This medical document was created using an electronic medical record system with [employer] dictation system. Although this document has been carefully reviewed, there may still be some phonetic and typographical errors. These areas are purely typographical due to imperfections of the software programs, and do not reflect any compromise in the patient's medical care. Plan discussed with: Patient, Spouse, Other (RN) Date of Service: Apr 08, 2025 Billing Provider: ANA CRISTINA CRISOSTOMO NP Common Visit Codes: 82017-NEAZIVHEOM INP/OBS CARE(HIGH) ANA CRISTINA CRISOSTOMO NP Apr 08, 2025 12:56
[2025-04-08 13:00] VITALS: BP 113/65; PULSE 86; RESP 18; TEMP 99.9; O2SAT 96
[2025-04-08 17:09] VITALS: BP 121/72; PULSE 87; RESP 18; TEMP 98.3; O2SAT 91
[2025-04-08 21:00] VITALS: BP 101/56; PULSE 83; RESP 20; TEMP 98.5; O2SAT 98
[2025-04-08] MEDS: DOCUSATE SOD 100 MG CAP PO PRN (22:26)
[2025-04-09] VITALS (7 sets, daily range): BP systolic 95–114; BP diastolic 52–75; PULSE 65–78; RESP 18–19; TEMP 97.4–99.4; O2SAT 94–99
--- NOTE | 2025-04-09 05:55 | DVH ---
EXAM: CT NECK WITHOUT CONTRAST INDICATION: surgical planning Exam Date: 04/09/2025 02:44 AM COMPARISON: MRI CERVICAL WO CONTRAST on DOS: 04/08/25, XY CERVICAL SPINE 3V on DOS: 04/07/25, CT HEAD W ITHOUT CONTRAST on DOS: 04/07/25 TECHNIQUE: CT of the neck without intravenous contrast. RADIATION DOSE: CTDIvol: 28.47 mGy, DLP: 659.47 mGy*cm FINDINGS: There is no evidence of cervical mass lesion, pathologically enlarged lymph nodes or fluid collection . The fat planes of the neck appear intact. The airway and larynx are unremarkable. The parotid, submandibular and thyroid glands are unremarkable. The vascular structures of the neck appear patent. The visualized lung apices are clear. The limited visualized portions of the brain are unremarkable. Anterior cervical spinal fixation hardware is partially imaged at C4, C5 and C6. IMPRESSION: No evidence of cervical mass lesion, pathologically enlarged lymph nodes or fluid collection. Limited examination secondary to lack of intravenous contrast administration.
--- NOTE | 2025-04-09 06:22 | ECG ---
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
--- NOTE | 2025-04-09 08:44 | PRN ---
Misceleneous Note Note Note Spoke to patient about the MRI findings, we would like to offer surgical intervention of C3-4, C6-7 ACDF. We have OR time available . Spoke to patient father via phone at pt request. Patient and family will discuss the plan and determine if they would like to go forward with surgery. Awaiting patient's decision on surgical plan Request nursing to contact spine team once the patient has made a decision. If she chooses to go forward she will need cardiac clearance. We will her to 04/10/25 OR schedule to follow. Call with questions Jacques Domínguez [facility] Orthopaedic Spine Surgery nurse practitioner For Dr Brody Campoverde Patient was examined, chart reviewed, labs evaluated, and diagnostic studies and findings analyzed. Case was discussed with Dr. Abad Campoverde who formulated the plan of care. This medical document was created using an electronic medical record system with [employer] dictation system. Although this document has been carefully reviewed, there might still be some phonetic and typographical errors. These areas are purely typographical due to imperfections of the software programs, and do not reflect any compromise in the patient's medical care. MOO DOMÍNGUEZ NP Apr 09, 2025 08:44
[2025-04-09] MEDS: SODIUM CHLORIDE 0.9% 1,000 ML IV ONE (11:24)
[2025-04-09] MEDS: HYDROMORPHONE HCL 1 MG/ML INJ IV PRN (12:17)
--- NOTE | 2025-04-09 12:41 | DVHDS2 ---
Discharge Summary Date of Admission Apr 07, 2025 at 12:04 Date of Discharge: Apr 09, 2025 Admitting Diagnosis Acute right-sided paresthesia and weakness Labs/Diagnostic Data: Laboratory Results Test 04/08/25 05:09 04/07/25 10:11 White Blood Count 5.5 10^3/uL (4.4-10.8) Red Blood Count 3.90 10^6/uL (4.0-5.20) Hemoglobin 13.0 g/dL (12.2-16.2) Hematocrit 37.6 % (36.0-46.0) Mean Corpuscular Volume 96.3 fL (80.0-100.0) Mean Corpuscular Hemoglobin 33.3 pg (28.0-32.0) Mean Corpuscular Hemoglobin Concent 34.6 g/dL (32.0-36.0) Red Cell Distribution Width 13.0 % (11.8-14.3) Platelet Count 292 10^3/uL (140-450) Mean Platelet Volume 7.2 fL (6.9-10.8) Neutrophils (%) (Auto) 80.1 % (37.0-80.0) Lymphocytes (%) (Auto) 17.3 % (10.0-50.0) Monocytes (%) (Auto) 2.6 % (0.0-12.0) Eosinophils (%) (Auto) 0.0 % (0.0-7.0) Basophils (%) (Auto) 0.0 % (0.0-2.0) Neutrophils # (Auto) 4.4 10 ^3/uL (1.6-8.6) Lymphocytes # (Auto) 1.0 10 ^3/uL (0.4-5.4) Monocytes # (Auto) 0.1 10 ^3/uL (0-1.3) Eosinophils # (Auto) 0 10 ^3/uL (0-0.8) Basophils # (Auto) 0 10 ^3/uL (0-0.2) Nucleated Red Blood Cells 0.1 % Sodium Level 138 mmol/L (136-145) Potassium Level 4.1 mmol/L (3.5-5.1) Chloride Level 106 mmol/L (98-107) Carbon Dioxide Level 24 mmol/L (20-31) Anion Gap 8 (5-15) Blood Urea Nitrogen 7 mg/dL (9-23) Creatinine 0.80 mg/dL (0.550-1.02) Glomerular Filtration Rate Calc 98 mL/min (>90) BUN/Creatinine Ratio 8.8 (10.0-20.0) Serum Glucose 140 mg/dL (74-106) Calcium Level 8.7 mg/dL (8.7-10.4) Total Bilirubin 0.9 mg/dL (0.2-1.0) Aspartate Amino Transferase (AST) 11 U/L (13-40) Alanine Aminotransferase (ALT) 15 U/L (7-40) Alkaline Phosphatase 63 U/L (46-116) Total Protein 7.2 g/dL (5.7-8.2) Albumin 4.0 g/dL (3.2-4.8) Urine Color Light-yellow (Yellow) Urine Clarity Clear (Clear) Urine pH 5.5 (5.0-9.0) Urine Specific [place] 1.032 (1.001-1.035) Urine Protein Negative (Negative) Urine Ketones Trace (Negative) Urine Blood Negative /uL (Negative) Urine Nitrite Negative (Negative) Urine Bilirubin Negative (Negative) Urine Urobilinogen Normal mg/dL (Negative) Urine Leukocyte Esterase Negative /uL (Negative) Urine RBC 1 /hpf (0 - 4) Urine Microscopic WBC 1 /HPF (0-5) Urine Squamous Epithelial Cells Few /hpf (<5) Urine Bacteria None seen /hpf (None Seen) Urine Mucus Few (None Seen) Urine Glucose Normal mg/dL (Normal) Urine Test Negative (Negative) Other Laboratory Tests 04/08/25 05:09 Brief Hx & Hospital Course: History of Present Illness 34-year-old female with past medical history of hyperlipidemia and prior cervical spine surgery with disc replacement and cervical plating in 2014 presents with acute right-sided numbness, weakness, and intractable pain following a stretching movement. The patient reports that at approximately 1:00 AM today, she was performing a deep arm stretch, moving her upper body side to side, when she suddenly developed burning, full-body numbness and tingling along the entire right side, extending from her neck to her right lower extremity. She reports inability to move or bear weight on her right leg since the onset, along with persistent numbness and tingling in the leg. She retains some sensation in the foot and toes, but has lost motor function. She also endorses right shoulder pain but denies any recent trauma, fall, or direct injury. She has not experienced headaches, dizziness, or urinary incontinence. She was able to void using a bedpan and denies fecal incontinence. However, she notes numbness and tingling in the waistline region. 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 She currently resides with her parents. while In the ED, labs showed CBC and BMP within normal limits, glucose 138. Imaging included lumbar spine X-ray (unremarkable), C5 spine X-ray (negative), and CT brain (negative). She was treated with morphine for pain, and gabapentin and baclofen were initiated. Given her neurological deficits and history of cervical spine hardware, she will be admitted for further evaluation by neurology and orthopedic spine, with neuro checks to be monitored closely. Course of hospitalization: Patient was seen by spinal surgery team. MRI of the cervical and lumbar spine were performed. Results were the following: PATIENT: JOSEPH MACK ACCT: [id number] UNIT: [id number] : 1990 LOC: [facility] ROOM / BED: [address] [place] [address] AGE / SEX: 34 / F ADM STATUS: ADM IN SERVICE [id number] ORDERING PHYSICIAN: MOO PRITCHARD NP PROCEDURE(s): MNE - CERVICAL WO CONTRAST REASON: Evaluation of existing cervical hardware with neurologic sym ORDER NUMBER(s): [id number], ACCESSION NUMBER(s): [id number] PROCEDURE: MRI cervical spine without contrast. INDICATION: Evaluation of existing cervical hardware with neurologic sym. COMPARISON: XY CERVICAL SPINE 3V on DOS: 04/07/25 TECHNIQUE: MRI of the cervical spine without intravenous contrast utilizing multiplanar, multisequence technique. FINDINGS: The alignment of the cervical spine vertebral bodies is preserved. There is reversal of the cervical lordosis. There is anterior cervical discectomy and fusion at C4-C6. The vertebral body heights are maintained. Artifact from the cervical spine hardware limits evaluation. There is intervertebral disc space narrowing at C2-C3 and C6-C7. The bone marrow signal is homogenous and unremarkable. There is multifocal spinal cord narrowing which is most severe at C6-C7, described in more detail at each level below. There is focal T2 hyperintensity is noted in the cervical spinal cord at the C5-C6 level which may reflect edema or myelomalacia. Posterior fossa structures are unremarkable. No cerebellar tonsillar herniation. Paraspinal muscles are unremarkable. No prevertebral fluid collection. At the C2-C3 level, there is posterior disc osteophyte complex. There is no significant spinal stenosis. Mild left neural foraminal stenosis. The right neural foramina is patent. At the C3-C4 level, there is posterior disc osteophyte complex. There is moderate spinal stenosis. There is flattening of the cervical spinal cord due to posterior disc osteophyte complex. No cord signal change. Moderate right and mild to moderate left neural foraminal stenosis is present. At the C4-C5 level, there is postsurgical change. There is moderate spinal stenosis due to posterior osteophyte. There is flattening of the cervical spinal cord at this level. There is mild right and moderate left neural foraminal stenosis. At the C5-C6 level, there is postsurgical change. Moderate spinal stenosis due to posterior osteophytes. There is mild right and severe left neural foraminal stenosis. At the C6-C7 level, there is posterior disc extrusion which extends caudally along the posterior C7 vertebral body. There is moderate spinal stenosis. Moderate spinal cord compression at this level without cord signal change. Moderate to severe right and severe left neural foraminal stenosis is noted. At the C7-T1 level, there is posterior central disc protrusion. There is mild spinal stenosis. No significant right neural foraminal stenosis. Severe left neural foraminal stenosis. Other: None. IMPRESSION: Multilevel postsurgical changes of the cervical spine. Multilevel spinal stenosis and neural foraminal stenosis as described in detail above. Focal T2 hyperintensity in the cervical spinal cord at the C5-C6 level which may reflect edema or myelomalacia. 1. Anterior cervical discectomy and fusion at C4-C6. There some artifact from the hardware which limits evaluation. 2. Multilevel degenerative changes in the cervical spine. In particular, there is moderate spinal stenosis at C6-C7 due to disc extrusion which causes moderate compression of the cervical spinal cord. No cord signal change. There is moderate to severe right and severe left neural foraminal stenosis at C6-C7. Additional moderate spinal stenosis present at C4-C5 and C5-C6. 3. Focal T2 hyperintensity in the cervical spinal cord at the C5-C6 level which may reflect edema or myelomalacia. ATED BY: FLOYD BOLDEN MD DICTATED DATE/TIME: 04/08/251201 SIGNED BY: FLOYD BOLDEN MD SIGNED DATE/TIME: 04/08/251201 CC: PATIENT: JOSEPH MACK ACCT: [id number] UNIT: [id number] : 1990 LOC: [facility] ROOM / BED: [facility] A AGE / SEX: 34 / F ADM STATUS: ADM IN SERVICE 39 ORDERING PHYSICIAN: MOO PRITCHARD NP PROCEDURE(s): MSL - LUMBAR SPINE WO CONTRAST REASON: concern for lumbar disc ORDER NUMBER(s): [id number], ACCESSION NUMBER(s): [id number] PROCEDURE: MRI lumbar spine without contrast. INDICATION: Concern for lumbar disc COMPARISON: Radiographs of the lumbar spine dated 04/07/2025. TECHNIQUE: MRI lumbar spine without intravenous contrast utilizing multiplanar, multisequence technique. FINDINGS: The alignment of the lumbar spine vertebral bodies is preserved. Bone marrow signal is homogenous and unremarkable. The vertebral body heights are maintained. There is intervertebral disc space narrowing and desiccation at L3- L4 and L4-L5. The conus medullaris is normal in signal characteristics and terminates at the T12-L1 level. Paraspinal muscles are unremarkable. At the T12-L1 level, there is no evidence of central spinal canal or neuroforaminal stenosis. At the L1-L2 level, there is no evidence of central spinal canal or neuroforaminal stenosis. At the L2-L3 level, there is no evidence of central spinal canal or neuroforaminal stenosis. At the L3-L4 level, there is no evidence of central spinal canal or neuroforaminal stenosis. At the L4-L5 level, there is broad-based posterior disc bulge. There is mild spinal stenosis. There is mild bilateral neural foraminal stenosis. At the L5-S1 level, there is no evidence of central spinal canal or neuroforaminal stenosis. Other: None. IMPRESSION: 1. Broad-based posterior disc bulge at L4-L5 with mild spinal stenosis and mild bilateral neural foraminal stenosis. No evidence of disc herniation. ATED BY: FLOYD BOLDEN MD DICTATED DATE/TIME: 04/08/25 113 SIGNED BY: FLOYD BODLEN MD SIGNED DATE/TIME: 04/08/25 113 CC: Patient was offered surgical intervention at this facility, with the patient requesting to be transferred to her original surgeon at [facility]. Patient will be continued with current treatment for pain management, physical therapy, until transferred to tertiary care center. Physical exam General: Alert and Oriented x3. No acute distress. Well-nourished. Eyes: EOMI. Anicteric. HENT: Moist mucous membranes. Lungs: Clear to auscultation bilaterally. No accessory muscle use. Cardiovascular: Regular rate and rhythm. No murmur. No JVD. Abdomen: Soft, non-tender and non-distended. No palpable masses. Extremities: No edema. Non-tender. Skin: No rashes or lesions. Warm. Neurologic: No focal neurological deficits. CN II-XII grossly intact, but not individually tested. Psychiatric: Cooperative. Appropriate mood and affect. Total time spent with patient discussing and formulating plan of care: 35 minutes. This medical document was created using an electronic medical record system with [employer] dictation system. Although this document has been carefully reviewed, there may still be some phonetic and typographical errors. These areas are purely typographical due to imperfections of the software programs, and do not reflect any compromise in the patient's medical care. Condition at Discharge: Fair Final Diagnosis/Problems List Cervical spinal stenosis with right sided paresthesia and radiculopathy Lumbar spine herniation Obesity Dyslipidemia Discharge Disposition: Acute Care Facility Discharge Instruct/Medications Diet: Regular Activity: Light activity Follow Up/Referral: Per accepting provider Medications: Refer to medication reconciliation No Active Prescriptions or Reported Meds 36 Discharge Statement: "Patient was advised to return to the ER or call 911 if any headaches, dizziness, shortness of breath, chest pain, abdominal pain, bleeding, fevers, or worsening of medical condition. Patient was counseled about treatment plan, medications, possible side effects, patientverbalized understanding. All questions were answered to the best of my ability. This discharge took greater then 30 minutes in planning, reviewing documentation, counseling the patient, and discussing with other team members." ASSESSMENT ASSESSMENT Assessment Cervical spinal stenosis with right sided paresthesia and radiculopathy Date of Service: Apr 09, 2025 Billing Provider: ANA CRISTINA CRISOSTOMO NP Common Visit Codes: 25460-ZRV/OBS DISCH DAY >30min ANA CRISTINA CRISOSTOMO NP Apr 09, 2025 12:41
--- NOTE | 2025-04-09 19:23 | DVH ---
CLINICAL HISTORY: evaluate cervical fusion TECHNIQUE: CT exam of the cervical spine was performed without intravenous contrast. This exam was pe rformed according to our departmental dose optimization program. Up-to-date CT equipment and radiatio n dose reduction techniques are utilized as appropriate. 18.94 CTDI: 18.94 DLP: 456.97 WID: COMPARISON: MRI CERVICAL WO CONTRAST on DOS: 04/08/25, FINDINGS: Prior ACDF at C4 -C6 with interbody spacers and fusion at C4-C5 and C5-C6. The hardware components ar e intact. There is fusion of the posterior elements at C4-C5 and C5-C6. There is normal cervical alig nment. The vertebral body heights are maintained. No acute cervical fracture or subluxation is identi fied. There is multilevel degenerative change of the cervical spine with [id number] disc space narrow ing at C3-C4 and C6-C7. There is multilevel uncovertebral and facet hypertrophy resulting in multilev el bony neural foraminal stenosis up to severe bilaterally at C6-C7. Multilevel disc osteophyte compl exes in the cervical spine resulting in severe multilevel bony spinal stenosis. The paraspinous soft tissues are unremarkable. The lung apices are clear. IMPRESSION: 1. No acute fracture or traumatic malalignment. 2. Prior ACDF at C4-C6 with interbody fusion at C4-C5 and C5-CThe hardware components are intact. 3. Multilevel degenerative neural foraminal stenosis up to severe bilaterally at C6-C7. 4. Multilevel degenerative severe spinal stenosis.
[2025-04-10] VITALS (7 sets, daily range): BP systolic 92–110; BP diastolic 48–60; PULSE 66–89; RESP 18–20; TEMP 97.8–99.2; O2SAT 93–97
--- NOTE | 2025-04-10 09:14 | DVHPN2 ---
Subjective Patient reporting persistent lower back pain Reviewed: Care Plan, H&P, Labs, Medications Changes from previous H/P or p: No Changes Eyes: No Pain, No Vision change, No Conjunctivae inflammation, No Eyelid inflammation, No Other, No Redness ENT: No Ear pain, No Ear discharge, No Nose pain, No Nose discharge, No Nose congestion, No Mouth pain, No Mouth swelling, No Throat pain, No Throat swelling, No Other Cardiovascular: No Chest Pain, No Palpitations, No Orthopnea, No Paroxysmal Noc. Dyspnea, No Edema, No Lt Headedness, No Other Respiratory: No Cough, No Dry; Shortness of breath; No SOB with excertion, No Wheezing, No Hemoptysis, No Pleuritic Pain, No Sputum, No Other Gastrointestinal: No Nausea, No Vomiting, No Abdominal Pain, No Diarrhea, No Constipation, No Melena, No Hematochezia, No Other Genitourinary: No Dysuria, No Frequency, No Incontinence, No Hematuria, No Retention, No Other Musculoskeletal: other (Right side body pain and numbness and tingling), neck pain, shoulder pain, leg pain, foot pain Skin: No Rash, No Lesions, No Jaundice, No Bruising, No Other Objective Vitals Vital Signs Date Time Temp Pulse Resp B/P (MAP) Pulse Ox O2 Delivery O2 Flow Rate FiO2 04/10/25 08:38 98.2 66 20 92/56 (68) 95 98.2 04/09/25 20:21 Room Air* 0 21 Intake/Output Intake and Output 04/10/25 07:00 Intake Total 1900 ml Balance 1900 ml Intake Oral 900 ml IV Total 1000 ml # Voids 1 General Appearance: Alert, Oriented X3, Cooperative HEENT: Atraumatic, PERRLA Lungs: Clear to auscultation, Normal air movement Cardiovascular: Normal S1, Normal S2 Abdomen: Normal bowel sounds, No tenderness Genitourinary: No Apparent Abnormalities Musculoskeletal: Other (Minimal motor movement to right lower extremity. Plantar flexion 1/5, dorsiflexion 0/5) Neuro: Normal gait, Normal speech Skin: Dry, Intact Psych/Mental Status: Mental status NL, Mood NL Medications Current Medications Medications Dose Ordered Sig/Gabriella Route Start Time Stop Time Status Last Admin Dose Admin Methocarbamol 500 mg QID PO 04/07/25 18:00 04/10/25 06:20 500 MG Gabapentin 300 mg TID PO 04/07/25 14:00 04/10/25 05:31 300 MG Temazepam 15 mg QHSP PRN PO 04/07/25 12:15 Ondansetron HCl 4 mg Q4HP PRN IV 04/07/25 12:15 Docusate Sodium 100 mg BIDPRN PRN PO 04/07/25 12:15 04/10/25 01:09 100 MG Enoxaparin Sodium 40 mg DAILY SC 04/08/25 10:00 04/09/25 10:25 40 MG Nitroglycerin 0.4 mg Q5MINP PRN SL 04/07/25 12:15 Hydromorphone HCl 0.25 mg Q4HPRN PRN IV 04/09/25 11:45 04/10/25 01:09 0.25 MG Laboratory Results Laboratory Tests 04/08/25 05:09 Urinalysis Test 04/07/25 10:11 Urine Color Light-yellow (Yellow) Urine Clarity Clear (Clear) Urine pH 5.5 (5.0-9.0) Urine Specific [place] 1.032 (1.001-1.035) Urine Protein Negative (Negative) Urine Ketones Trace (Negative) Urine Blood Negative /uL (Negative) Urine Nitrite Negative (Negative) Urine Bilirubin Negative (Negative) Urine Urobilinogen Normal mg/dL (Negative) Urine Leukocyte Esterase Negative /uL (Negative) Urine RBC 1 /hpf (0 - 4) Urine Microscopic WBC 1 /HPF (0-5) Urine Squamous Epithelial Cells Few /hpf (<5) Urine Bacteria None seen /hpf (None Seen) Urine Mucus Few (None Seen) Urine Glucose Normal mg/dL (Normal) Urine Test Negative (Negative) Labs and/or images reviewed: Labs reviewed by me, Image(s) reviewed by me Assessment/Plan Assessment/Plan Impression: -L4/L5 posterior disc bulge -right lower extremity paresthesia -obesity -history of cervical stenosis -hypercholesterolemia Plan: -spine surgery consultation: Recommendations reviewed. Discussed case, with patient to be transferred to previous spinal surgical surgeon at [facility] -pain management: Continue to [place], add Percocet -physical therapy -bowel regimen -right ankle brace to prevent foot drop -continue efforts to transfer to [facility] Total time spent with patient discussing and formulating plan of care: 35 minutes. This medical document was created using an electronic medical record system with [employer] computerized dictation system. Although this document has been carefully reviewed, there may still be some phonetic and typographical errors. These areas are purely typographical due to imperfections of the software programs, and do not reflect any compromise in the patient's medical care. Plan discussed with: Patient, Other (RN) My Orders Orders - ANA CRISTINA CRISOSTOMO NP Procedure Category Date Status Time Hydromorphone Hcl Inj PHA 04/09/25 In Process (Dilaudid Injectio 11:45 * Driller Brake Lining CONS 04/09/25 Transmitted Consult Discharge DISCHARGE 04/09/25 Transmitted 12:28 Imaging Transfer ORDERS 04/09/25 Transmitted Request 12:33 Imaging Transfer ORDERS 04/09/25 Transmitted Request 18:46 Date of Service: Apr 10, 2025 Billing Provider: ANA CRISTINA CRISOSTOMO NP Common Visit Codes: [id number] INP/OBS CARE(HIGH) ANA CRISTINA CRISOSTOMO NP Apr 10, 2025 09:14
[2025-04-10] MEDS: DOCUSATE SOD 100 MG CAP PO SCH (10:00)
[2025-04-10] MEDS: OXYCODONE W/ ACETAMINOPHEN 5/325MG TABLET PO PRN (12:38)
[2025-04-11 01:00] VITALS: BP 105/67; PULSE 78; RESP 18; TEMP 97.6; O2SAT 93
[2025-04-11 05:00] VITALS: BP 102/56; PULSE 72; RESP 18; TEMP 97.8; O2SAT 94
[2025-04-11 09:00] VITALS: BP 101/49; PULSE 71; RESP 17; TEMP 97.9; O2SAT 95
[2025-04-11 13:00] VITALS: BP 120/51; PULSE 75; RESP 17; TEMP 97.6; O2SAT 97
--- NOTE | 2025-04-11 14:45 | DVHPN2 ---
Subjective Right lower extremity weakness Reviewed: Care Plan, H&P, Labs, Medications Changes from previous H/P or p: No Changes Eyes: No Pain, No Vision change, No Conjunctivae inflammation, No Eyelid inflammation, No Other, No Redness ENT: No Ear pain, No Ear discharge, No Nose pain, No Nose discharge, No Nose congestion, No Mouth pain, No Mouth swelling, No Throat pain, No Throat swelling, No Other Cardiovascular: No Chest Pain, No Palpitations, No Orthopnea, No Paroxysmal Noc. Dyspnea, No Edema, No Lt Headedness, No Other Respiratory: No Cough, No Dry; Shortness of breath; No SOB with excertion, No Wheezing, No Hemoptysis, No Pleuritic Pain, No Sputum, No Other Gastrointestinal: No Nausea, No Vomiting, No Abdominal Pain, No Diarrhea, No Constipation, No Melena, No Hematochezia, No Other Genitourinary: No Dysuria, No Frequency, No Incontinence, No Hematuria, No Retention, No Other Musculoskeletal: other (Right side body pain and numbness and tingling), neck pain, shoulder pain, leg pain, foot pain Skin: No Rash, No Lesions, No Jaundice, No Bruising, No Other Objective Vitals Vital Signs Date Time Temp Pulse Resp B/P (MAP) Pulse Ox O2 Delivery O2 Flow Rate FiO2 04/11/25 13:00 97.6 75 17 120/51 (74) 97 97.6 04/11/25 08:00 Room Air* 0 21 Intake/Output Intake and Output 04/11/25 07:00 Intake Total 2640 ml Balance 2640 ml Intake Oral 2640 ml # Voids 4 General Appearance: Alert, Oriented X3, Cooperative HEENT: Atraumatic, PERRLA Lungs: Clear to auscultation, Normal air movement Cardiovascular: Normal S1, Normal S2 Abdomen: Normal bowel sounds, No tenderness Genitourinary: No Apparent Abnormalities Musculoskeletal: Other (Minimal motor movement to right lower extremity. Plantar flexion 1/5, dorsiflexion 0/5) Neuro: Normal gait, Normal speech Skin: Dry, Intact Psych/Mental Status: Mental status NL, Mood NL Medications Current Medications Medications Dose Ordered Sig/Gabriella Route Start Time Stop Time Status Last Admin Dose Admin Methocarbamol 500 mg QID PO 04/07/25 18:00 04/11/25 11:46 500 MG Gabapentin 300 mg TID PO 04/07/25 14:00 04/11/25 05:24 300 MG Temazepam 15 mg QHSP PRN PO 04/07/25 12:15 Ondansetron HCl 4 mg Q4HP PRN IV 04/07/25 12:15 Enoxaparin Sodium 40 mg DAILY SC 04/08/25 10:00 04/11/25 09:29 40 MG Nitroglycerin 0.4 mg Q5MINP PRN SL 04/07/25 12:15 Hydromorphone HCl 0.25 mg Q4HPRN PRN IV 04/09/25 11:45 04/10/25 09:25 0.25 MG Oxycodone/ Acetaminophen 1 tab Q4HP PRN PO 04/10/25 09:15 04/11/25 11:46 1 TAB Docusate Sodium 100 mg BID PO 04/10/25 10:00 04/11/25 09:29 100 MG Laboratory Results Laboratory Tests 04/08/25 05:09 Urinalysis Test 04/07/25 10:11 Urine Color Light-yellow (Yellow) Urine Clarity Clear (Clear) Urine pH 5.5 (5.0-9.0) Urine Specific [place] 1.032 (1.001-1.035) Urine Protein Negative (Negative) Urine Ketones Trace (Negative) Urine Blood Negative /uL (Negative) Urine Nitrite Negative (Negative) Urine Bilirubin Negative (Negative) Urine Urobilinogen Normal mg/dL (Negative) Urine Leukocyte Esterase Negative /uL (Negative) Urine RBC 1 /hpf (0 - 4) Urine Microscopic WBC 1 /HPF (0-5) Urine Squamous Epithelial Cells Few /hpf (<5) Urine Bacteria None seen /hpf (None Seen) Urine Mucus Few (None Seen) Urine Glucose Normal mg/dL (Normal) Urine Test Negative (Negative) Labs and/or images reviewed: Labs reviewed by me, Image(s) reviewed by me Assessment/Plan Assessment/Plan Impression: -L4/L5 posterior disc bulge -right lower extremity paresthesia -obesity -history of cervical stenosis -hypercholesterolemia -constipation Plan: -spine surgery consultation: Recommendations reviewed. Discussed case, with patient to be transferred to previous spinal surgical surgeon at [facility]. Awaiting for transfer to [facility], apparently patient's insurance continues to be a challenge to have patient transferred. -pain management: Continue to Dilaudid, add Percocet -physical therapy -bowel regimen: Add lactulose -right ankle brace to prevent foot drop -continue efforts to transfer to [facility] Total time spent with patient discussing and formulating plan of care: 35 minutes. This medical document was created using an electronic medical record system with [employer] dictation system. Although this document has been carefully reviewed, there may still be some phonetic and typographical errors. These areas are purely typographical due to imperfections of the software programs, and do not reflect any compromise in the patient's medical care. Plan discussed with: Patient, Other (RN) Date of Service: Apr 11, 2025 Billing Provider: ANA CRISTINA CRISOSTOMO NP Common Visit Codes: [id number] INP/OBS CARE(HIGH) ANA CRISTINA CRISOSTOMO NP Apr 11, 2025 14:45
--- NOTE | 2025-04-11 14:55 | PRN ---
Misceleneous Note Note Note 04/08/2025 Spine surgery team made aware that patient has chosen to see a surgeon at [facility]. Spine surgery signed off on case MOO PRITCHARD NP Apr 11, 2025 14:55
[2025-04-11 17:00] VITALS: BP 116/52; PULSE 77; RESP 18; TEMP 97.9; O2SAT 95
[2025-04-11 21:00] VITALS: BP 119/56; PULSE 68; RESP 18; TEMP 98.3; O2SAT 99
[2025-04-11] MEDS: LACTULOSE 20Gm/30ML SOLN PO SCH (22:47)
[2025-04-12 04:46] VITALS: BP 93/52; PULSE 72; RESP 18; TEMP 98.1; O2SAT 95
[2025-04-12 09:00] VITALS: BP 102/64; PULSE 79; RESP 18; TEMP 97.6; O2SAT 97
[2025-04-12 13:00] VITALS: BP 118/62; PULSE 83; RESP 14; TEMP 97.1; O2SAT 95
--- NOTE | 2025-04-12 13:31 | DVHPN2 ---
Subjective Right lower extremity weakness Reviewed: Care Plan, H&P, Labs, Medications Changes from previous H/P or p: No Changes Eyes: No Pain, No Vision change, No Conjunctivae inflammation, No Eyelid inflammation, No Other, No Redness ENT: No Ear pain, No Ear discharge, No Nose pain, No Nose discharge, No Nose congestion, No Mouth pain, No Mouth swelling, No Throat pain, No Throat swelling, No Other Cardiovascular: No Chest Pain, No Palpitations, No Orthopnea, No Paroxysmal Noc. Dyspnea, No Edema, No Lt Headedness, No Other Respiratory: No Cough, No Dry; Shortness of breath; No SOB with excertion, No Wheezing, No Hemoptysis, No Pleuritic Pain, No Sputum, No Other Gastrointestinal: No Nausea, No Vomiting, No Abdominal Pain, No Diarrhea, No Constipation, No Melena, No Hematochezia, No Other Genitourinary: No Dysuria, No Frequency, No Incontinence, No Hematuria, No Retention, No Other Musculoskeletal: other (Right side body pain and numbness and tingling), neck pain, shoulder pain, leg pain, foot pain Skin: No Rash, No Lesions, No Jaundice, No Bruising, No Other Objective Vitals Vital Signs Date Time Temp Pulse Resp B/P (MAP) Pulse Ox O2 Delivery O2 Flow Rate FiO2 04/12/25 09:00 97.6 79 18 102/64 (77) 97 97.6 04/12/25 08:00 Room Air* 0 21 Intake/Output Intake and Output 04/12/25 07:00 Intake Total 1000 ml Balance 1000 ml Intake Oral 1000 ml # Voids 3 General Appearance: Alert, Oriented X3, Cooperative HEENT: Atraumatic, PERRLA Lungs: Clear to auscultation, Normal air movement Cardiovascular: Normal S1, Normal S2 Abdomen: Normal bowel sounds, No tenderness Genitourinary: No Apparent Abnormalities Musculoskeletal: Other (Minimal motor movement to right lower extremity. Plantar flexion 1/5, dorsiflexion 0/5) Neuro: Normal gait, Normal speech Skin: Dry, Intact Psych/Mental Status: Mental status NL, Mood NL Medications Current Medications Medications Dose Ordered Sig/Gabriella Route Start Time Stop Time Status Last Admin Dose Admin Methocarbamol 500 mg QID PO 04/07/25 18:00 04/12/25 13:08 500 MG Gabapentin 300 mg TID PO 04/07/25 14:00 04/12/25 05:36 300 MG Temazepam 15 mg QHSP PRN PO 04/07/25 12:15 Ondansetron HCl 4 mg Q4HP PRN IV 04/07/25 12:15 Enoxaparin Sodium 40 mg DAILY SC 04/08/25 10:00 04/12/25 10:22 40 MG Nitroglycerin 0.4 mg Q5MINP PRN SL 04/07/25 12:15 Hydromorphone HCl 0.25 mg Q4HPRN PRN IV 04/09/25 11:45 04/10/25 09:25 0.25 MG Oxycodone/ Acetaminophen 1 tab Q4HP PRN PO 04/10/25 09:15 04/12/25 10:22 1 TAB Docusate Sodium 100 mg BID PO 04/10/25 10:00 04/12/25 10:21 100 MG Lactulose 30 ml BID PO 04/11/25 22:00 04/12/25 10:22 30 ML Laboratory Results Laboratory Tests 04/08/25 05:09 Urinalysis Test 04/07/25 10:11 Urine Color Light-yellow (Yellow) Urine Clarity Clear (Clear) Urine pH 5.5 (5.0-9.0) Urine Specific [place] 1.032 (1.001-1.035) Urine Protein Negative (Negative) Urine Ketones Trace (Negative) Urine Blood Negative /uL (Negative) Urine Nitrite Negative (Negative) Urine Bilirubin Negative (Negative) Urine Urobilinogen Normal mg/dL (Negative) Urine Leukocyte Esterase Negative /uL (Negative) Urine RBC 1 /hpf (0 - 4) Urine Microscopic WBC 1 /HPF (0-5) Urine Squamous Epithelial Cells Few /hpf (<5) Urine Bacteria None seen /hpf (None Seen) Urine Mucus Few (None Seen) Urine Glucose Normal mg/dL (Normal) Urine Test Negative (Negative) Labs and/or images reviewed: Labs reviewed by me, Image(s) reviewed by me Assessment/Plan Assessment/Plan Impression: -L4/L5 posterior disc bulge -right lower extremity paresthesia -obesity -history of cervical stenosis -hypercholesterolemia -constipation Plan: -spine surgery consultation: Recommendations reviewed. Discussed case, with patient to be transferred to previous spinal surgical surgeon at [facility]. Awaiting for transfer to [facility], apparently patient's insurance continues to be a challenge to have patient transferred. -pain management: Continue to Dilaudid, add Percocet -physical therapy -bowel regimen: Add lactulose, add fleet enema -SCD -right ankle brace to prevent foot drop -continue efforts to transfer to [facility] Total time spent with patient discussing and formulating plan of care: 35 minutes. This medical document was created using an electronic medical record system with [employer] dictation system. Although this document has been carefully reviewed, there may still be some phonetic and typographical errors. These areas are purely typographical due to imperfections of the software programs, and do not reflect any compromise in the patient's medical care. Plan discussed with: Patient, Other (RN) My Orders Orders - ANA CRISTINA CRISOSTOMO NP Procedure Category Date Status Time Lactulose Oral PHA 04/11/25 In Process 22:00 Fleet Enema Adult PHA 04/12/25 Transmitted 13:30 Date of Service: Apr 12, 2025 Billing Provider: ANA CRISTINA CRISOSTOMO NP Common Visit Codes: [id number] INP/OBS CARE(MOD) ANA CRISTINA CRISOSTOMO NP Apr 12, 2025 13:31
[2025-04-12] MEDS: FLEET ENEMA(ADULT) 135 ML PR ONE ×2 (14:05→18:13)
[2025-04-12 21:00] VITALS: BP 119/73; PULSE 90; RESP 19; TEMP 98.3; O2SAT 98
== END 2025-04-12 21:19 | disposition short-term general hospital (02) | DRG 551 ==
LOC: EDBD 04:43 → EDUNIT# 04:43 → ER 04:43 → OVERFLOW 12:04 → WEST WING 21:26
PROVIDERS: ADMIT Nurse Practitioner Acute Care; ATTEND Nurse Practitioner Acute Care
DX: M48.02 Spinal stenosis, cervical region (principal); G82.50 Quadriplegia, unspecified; Z68.41 Body mass index [BMI] 40.0-44.9, adult; E66.9 Obesity, unspecified; E78.00 Pure hypercholesterolemia, unspecified; K59.00 Constipation, unspecified; Z98.1 Arthrodesis status
CPT/HCPCS: 36415; 70450; 70490; 71045; 72040; 72100; 72125; 72141; 72148; 80048; 80053; 81001; 81025; 85025; 93005; 96374; 96375; 97110; 97116; 97163; 97530; G0378; J1100; J1885; J2405